=== PATIENT | male | born 1945 | race Caucasian/White ===

== ENCOUNTER 2016-03-30 07:32 | Inpatient (IN) ==
[2016-03-30] MEDS ORDERED: Levofloxacin 750 MG/150 ML 750 MG/150 ML BAG IVPB ONE (07:45)
[2016-03-30 07:52] LABS: Basophils % 0.1 %; Eosinophils % 0.1 %; Hematocrit 51.5 % (37.5-50.1); Hemoglobin 16.1 g/dL (12.9-16.9); Immature Granulocytes % 0.4 % (0-4); Mean Corpuscular HGB Conc 31.3 g/dL (31.6-35.5); Mean Corpuscular Volume 96.1 fL (83.0-100.0); Mean Platelet Volume 9.5 fL (9.4-12.4); Monocytes # 0.7 K/mcL (0.0-1.3); Monocytes % 4.9 %; Neutrophils # 12.8 K/mcL (1.6-8.9); Platelet Count 217 K/mcL (140-400); Red Blood Count 5.36 M/mcL (4.19-5.50); Segmented Neutrophils % 87.5 %
[2016-03-30 07:53] LABS: INR 0.9; Prothrombin Time 10.1 Seconds (9.4-12.1)
[2016-03-30 07:55] LABS: Activated Partial Thrombo Time 21.9 Seconds (26.0-36.0)
[2016-03-30 07:57] LABS: ABG Base Excess 9.8 mEq/L (-2.0 to 3.0); ABG HCO3 41.4 mEQ/L (21-27); ABG Oxygen Saturation 94 % (95-98); ABG PH 7.28 pH Units (7.32-7.45); ABG PO2 80 mmHg (85-104); ABG TCO2 44.1 mEq/L (20-26)
[2016-03-30 07:59] LABS: ABG PCO2 88 mmHg (35-45)
[2016-03-30 07:59] LABS: BUN/Creatinine Ratio 24 (6-26); Blood Urea Nitrogen 20 mg/dL (8-26); Calcium 9.5 mg/dL (8.6-10.8); Carbon Dioxide 36 mEq/L (19-29); Chloride 101 mEq/L (98-109); Glucose 177 mg/dL (70-99); Osmolality,Calculated 309 (280-300); Potassium 4.1 mEq/L (3.5-4.5); Sodium 146 mEq/L (136-145); eGFR For African Americans > 60 (> 60); eGFR For Non-African Americans > 60 (> 60)
[2016-03-30 08:00] LABS: Blood Gas FiO2 100 %
--- NOTE | 2016-03-30 08:08 | Emergency Department Note ---
Disposition Clinical Impression: Parkinsons Pneumonia Qualifiers: Pneumonia type: due to unspecified organism Laterality: right Lung location: unspecified part of lung Qualified Code(s): J18.9 - Pneumonia, unspecified organism Sepsis Qualifiers: Sepsis type: sepsis due to unspecified organism Qualified Code(s): A41.9 - Sepsis, unspecified organism Disposition: Admitted As Inpatient Condition: Fair Referrals: NO,PCP [Non-Partnered Physician] - Forms: ED Satisfaction Letter SOB HPI - General Chief Complaint: ED Shortness of Breath/Dyspnea Stated Complaint: Low O2 Saturation Time Seen by Provider: 03/30/16 07:45 Source: family, EMS Mode of arrival: EMS Limitations: no limitations Nursing Notes Reviewed: Yes Vital Signs Reviewed: Yes - History of Present Illness 71-year-old male history of Parkinson's presents for evaluation from a nursing facility for hypoxia. Patient was noted to have low oxygen saturation in the 40s reported by nursing staff and EMS. Patient was 91% on nonrebreather is alert and responsive. Patient was transitioned over to BiPAP upon arrival to the emergency department. contacted and is at bedside stating that the patient is DNR and would not want any intubations or chest compressions. states that he has been dealing with Parkinson's for several years and has difficulty swallowing. No notable cough or fever. No history of CHF or heart disease per the . Patient has been instructed to wear possibly 2 L oxygen at home but was not wearing any oxygen when he was found this morning. Nursing staff also note that patient is difficult to arouse. - Related Data Home Medications Medication Instructions Recorded Confirmed Acetaminophen [8 Hour] 650 mg PO Q6H PRN 07/08/15 03/30/16 Benztropine [Cogentin] 1 mg PO BID 07/08/15 03/30/16 Carbidopa/Levodopa 25/100 [Sinemet 1 each PO Q2H MDD 7 a.m. thru 9 07/08/1509/08 25/100] p.m. Cholecalciferol (Vitamin D3) 400 unit PO DAILY 07/08/15 03/30/16 [Vitamin D] Cyclosporine [Restasis] 1 each BOTH EYES BID 07/08/15 03/30/16 Doxycycline Hyclate [Vibramycin] 100 mg PO BID 07/08/15 03/30/16 Fluticasone Propionate Nasal 50 mcg NS DAILY 07/08/15 03/30/16 [Flonase] Gabapentin [Neurontin] 900 mg PO TID 07/08/15 03/30/16 Loperamide [Imodium] 2 mg PO Q8HR PRN 07/08/15 03/30/16 Losartan/HCTZ [Hyzaar 50-12.5 0.5 each PO DAILY 07/08/15 03/30/16 Tablet] Melatonin 10 mg PO HS PRN 07/08/15 03/30/16 Meloxicam [Mobic] 7.5 mg PO HS 07/08/15 03/30/16 Memantine [Namenda] 10 mg PO BID 07/08/15 03/30/16 Mirtazapine [Remeron] 15 mg PO HS 07/08/15 03/30/16 Multivitamin [Multivitamins] 1 cap PO DAILY 07/08/15 03/30/16 [place]-3/Dha/Epa/Fish Oil [Fish Oil 1 each PO BID 07/08/15 03/30/16 [place]-3 EC 1,200 mg] Oxycodone HCl/Acetaminophen 1 each PO Q4HR PRN 07/08/15 03/30/16 [Percocet 5-325 mg Tablet] Pantoprazole Sodium [Protonix] 40 mg PO BID 07/08/15 03/30/16 Simvastatin [Zocor] 20 mg PO HS 07/08/15 03/30/16 Acetaminophen [Tylenol Arthritis] 650 mg PO TID 03/30/16 03/30/16 Carbidopa/Levodopa 25/100 [Sinemet 1 each PO DAILY PRN MDD Between 03/30/1609/08 25/100] 1-2 a.m. only CloNIDine HCl 0.1 mg PO DAILY 03/30/16 03/30/16 Cyclobenzaprine HCl 5 mg PO HS 03/30/16 03/30/16 Donepezil HCl 23 mg PO DAILY 03/30/16 03/30/16 Guaifenesin [Mucinex] 1,200 mg PO BID PRN 03/30/16 03/30/16 Metoprolol XL (24 HR) Succ [Toprol 50 mg PO DAILY 03/30/16 03/30/16 XL] Ropinirole HCl [Requip] 3 mg PO TID 03/30/16 03/30/16 Allergies Allergy/AdvReac Type Severity Reaction Status Date / Time Penicillins Allergy See Verified 03/30/16 07:43 Comments Sulfa (Sulfonamide Allergy See Verified 03/30/16 07:43 Antibiotics) Comments Zolpidem [From Ambien] Allergy Unresponsiv Verified 03/30/16 07:43 e Limitations: ROS unobtainable due to patients medical condition Past Medical History - Past Medical History Medical history: Reports: dementia, GERD, hyperlipidemia, hypertension Surgical history: Reports: no surgical history Psychiatric history: Reports: anxiety, depression - Social History Smoking Status: Never smoker Smokeless Tobacco Status: No Alcohol use: Reports: none Drug use: Reports: none Physical Exam - General Limitations: other General appearance: alert, in distress - Head Head exam: normocephalic, normal inspection - Eye Eye exam: Present: normal appearance, EOMI - ENT ENT exam: normal exam, mucous membranes moist - Neck Neck exam: Present: normal inspection, trachea midline - Chest Chest inspection: Present: normal inspection, symmetric chest wall rise - Respiratory Respiratory exam: Present: respiratory distress, accessory muscle use, other ( Diffusely decreased breath sounds bilateral rhonchi) - Cardiovascular Cardiovascular exam: Present: normal rhythm, tachycardia - Abdominal Exam Abdominal exam: Present: soft, Non-Tender, distention. Absent: guarding, rebound - Extremities Exam Extremities exam: Present: normal inspection. Absent: pedal edema - Back Exam Back exam: Present: normal inspection - Neurological Exam Neurological exam: Present: alert - Skin Skin exam: Present: warm, dry, intact, mottled Course Course Narrative: Patient seen and examined. Patient's resting more comfortably on BiPAP. Patient is tachycardic and tachypneic. Signs for respiratory distress secondary to eye clinic infection possibly aspiration pneumonia. Patient did chest x-ray, labs, blood gas, antibiotics and fluids. Disposition likely admission. Reconfirmed at the bedside that the patient is DNR CC. - Reevaluation(s) Reevaluation #1: Patient seen and examined. at bedside. Patient appears to have continuous tachycardia and tachypnea. Patient would benefit from intubation this is again confirmed by the stating that he does not want intubation. Time: 08:53 Vital Signs Temperature 98.0 F 03/30/16 07:34 Pulse Rate 117 03/30/16 07:34 Respiratory Rate 42 03/30/16 07:34 Blood Pressure 181/83 03/30/16 07:34 O2 Sat by Pulse Oximetry 92 L 03/30/16 07:34 Temperature 98.0 F 03/30/16 07:34 Pulse Rate 140 03/30/16 08:20 Respiratory Rate 51 03/30/16 08:20 Blood Pressure 153/92 03/30/16 08:20 O2 Sat by Pulse Oximetry 93 L 03/30/16 08:20 Oxygen Delivery Oxygen Delivery Bipap Shortness of Breath/Dyspnea - MDM Narrative Medical decision making narrative: 71-year-old male history of Parkinson's presents for hypoxemic respiratory failure. Likely related to aspiration pneumonia. Patient blood gas shows acidosis with retaining CO2. Patient does qualify for surgery care resource of infection along. Patient's getting IV fluid hydration with gradual titrated boluses due to unknown cardiac history. presumes that the patient has does not have CHF. Patient would likely benefit from intubation however the states the patient does not want to be intubated. Patient's blood cultures were obtained. Patient wanted antibiotics. Hospitalist recommended duo nebs as well as Solu-Medrol. is updated on patient's plan of care and agrees. - Lab Data Lab results reviewed: Yes I reviewed the patient's lab results. Result diagrams: 03/30/16 07:40 03/30/16 07:40 Lab Results 03/30/16 03/30/16 03/30/16 Range/Units 07:40 07:40 07:40 WBC 14.7 H (4.3-11.1) K/mcL RBC 5.36 (4.19-5.50) M/mcL Hgb 16.1 (12.9-16.9) g/dL Hct 51.5 H (37.5-50.1) % MCV 96.1 (83.0-100.0) fL MCH 30.0 (28.0-33.3) pg MCHC 31.3 L (31.6-35.5) g/dL RDW 13.0 (11.5-14.5) % Plt Count 217 (140-400) K/mcL MPV 9.5 (9.4-12.4) fL Immature Gran % 0.4 (0-4) % Seg Neutrophils % 87.5 % Lymphocytes % 7.0 % Monocytes % 4.9 % Eosinophils % 0.1 % Basophils % 0.1 % Neutrophils # 12.8 H (1.6-8.9) K/mcL Lymphocytes # 1.0 (0.6-4.6) K/mcL Monocytes # 0.7 (0.0-1.3) K/mcL Eosinophils # 0.0 (0.0-0.6) K/mcL Basophils # 0.0 (0.0-0.2) K/mcL PT 10.1 (9.4-12.1) Seconds INR 0.9 APTT 21.9 L (26.0-36.0) Seconds ABG pH (7.32-7.45) pH Units ABG pCO2 (35-45) mmHg ABG pO2 (85-104) mmHg ABG HCO3 (21-27) mEQ/L ABG Total CO2 (20-26) mEq/L ABG O2 Saturation (95-98) % ABG Base Excess (-2.0 to 3.0) mEq/L Blood Gas Modality Inspired O2 % Sodium 146 H (136-145) mEq/L Potassium 4.1 (3.5-4.5) mEq/L Chloride 101 (98-109) mEq/L Carbon Dioxide 36 H (19-29) mEq/L BUN 20 (8-26) mg/dL Creatinine 0.84 (0.72-1.25) mg/dL Est GFR ( Amer) > 60 (> 60) Est GFR (Non-Af Amer) > 60 (> 60) BUN/Creatinine Ratio 24 (6-26) Glucose 177 H (70-99) mg/dL Calculated Osmolality 309 H (280-300) Lactic Acid (0.5-2.2) mmol/L Calcium 9.5 (8.6-10.8) mg/dL Troponin I (0-0.03) ng/mL B-Natriuretic Peptide (0-100) pg/mL 03/30/16 03/30/16 03/30/16 Range/Units 07:40 07:40 07:50 WBC (4.3-11.1) K/mcL RBC (4.19-5.50) M/mcL Hgb (12.9-16.9) g/dL Hct (37.5-50.1) % MCV (83.0-100.0) fL MCH (28.0-33.3) pg MCHC (31.6-35.5) g/dL RDW (11.5-14.5) % Plt Count (140-400) K/mcL MPV (9.4-12.4) fL Immature Gran % (0-4) % Seg Neutrophils % % Lymphocytes % % Monocytes % % Eosinophils % % Basophils % % Neutrophils # (1.6-8.9) K/mcL Lymphocytes # (0.6-4.6) K/mcL Monocytes # (0.0-1.3) K/mcL Eosinophils # (0.0-0.6) K/mcL Basophils # (0.0-0.2) K/mcL PT (9.4-12.1) Seconds INR APTT (26.0-36.0) Seconds ABG pH 7.28 L (7.32-7.45) pH Units ABG pCO2 88 H* (35-45) mmHg ABG pO2 80 L (85-104) mmHg ABG HCO3 41.4 H (21-27) mEQ/L ABG Total CO2 44.1 H (20-26) mEq/L ABG O2 Saturation 94 L (95-98) % ABG Base Excess 9.8 H (-2.0 to 3.0) mEq/L Blood Gas Modality BIPAP Inspired O2 100 % Sodium (136-145) mEq/L Potassium (3.5-4.5) mEq/L Chloride (98-109) mEq/L Carbon Dioxide (19-29) mEq/L BUN (8-26) mg/dL Creatinine (0.72-1.25) mg/dL Est GFR ( Amer) (> 60) Est GFR (Non-Af Amer) (> 60) BUN/Creatinine Ratio (6-26) Glucose (70-99) mg/dL Calculated Osmolality (280-300) Lactic Acid (0.5-2.2) mmol/L Calcium (8.6-10.8) mg/dL Troponin I 0.01 (0-0.03) ng/mL B-Natriuretic Peptide 27 (0-100) pg/mL 03/30/16 Range/Units 08:02 WBC (4.3-11.1) K/mcL RBC (4.19-5.50) M/mcL Hgb (12.9-16.9) g/dL Hct (37.5-50.1) % MCV (83.0-100.0) fL MCH (28.0-33.3) pg MCHC (31.6-35.5) g/dL RDW (11.5-14.5) % Plt Count (140-400) K/mcL MPV (9.4-12.4) fL Immature Gran % (0-4) % Seg Neutrophils % % Lymphocytes % % Monocytes % % Eosinophils % % Basophils % % Neutrophils # (1.6-8.9) K/mcL Lymphocytes # (0.6-4.6) K/mcL Monocytes # (0.0-1.3) K/mcL Eosinophils # (0.0-0.6) K/mcL Basophils # (0.0-0.2) K/mcL PT (9.4-12.1) Seconds INR APTT (26.0-36.0) Seconds ABG pH (7.32-7.45) pH Units ABG pCO2 (35-45) mmHg ABG pO2 (85-104) mmHg ABG HCO3 (21-27) mEQ/L ABG Total CO2 (20-26) mEq/L ABG O2 Saturation (95-98) % ABG Base Excess (-2.0 to 3.0) mEq/L Blood Gas Modality Inspired O2 % Sodium (136-145) mEq/L Potassium (3.5-4.5) mEq/L Chloride (98-109) mEq/L Carbon Dioxide (19-29) mEq/L BUN (8-26) mg/dL Creatinine (0.72-1.25) mg/dL Est GFR ( Amer) (> 60) Est GFR (Non-Af Amer) (> 60) BUN/Creatinine Ratio (6-26) Glucose (70-99) mg/dL Calculated Osmolality (280-300) Lactic Acid 3.3 H (0.5-2.2) mmol/L Calcium (8.6-10.8) mg/dL Troponin I (0-0.03) ng/mL B-Natriuretic Peptide (0-100) pg/mL - Radiology Data Radiology results reviewed: Yes I reviewed the patient's radiology results. Chest X-Ray 03/30/16 07:45 IMPRESSION: Right perihilar opacity suspicious for pneumonia in the foot clinical setting. Short-term follow-up is recommended to ensure resolution. D/ / Alayna Batres MD / Alayna Batres MD Interpreting Provider: Alayna Batres MD - EKG Data EKG shows normal: Reports: sinus rhythm Rate: Reports: tachycardia Rhythm: Reports: NSR [place]/QRS: Reports: normal When compared to previous EKG there are: changes noted Interpretation: Reports: nonspecific ST-T wave changes S.B.Dian - [email or web address].Julieth Situation: Demographics Background: Presenting Complaint Assessment: Vital Signs, Course and respsone to treatment, Exam Concerns, Patient/Family Expectation, Pertinant Lab Results Recommendation: Barrier(s) to disposition, Recommendation based on pending studies, treatments, or consults S.B.AJulian Report Given to: Dr. Lemuel Velasquez Repor Time: 08:56
[2016-03-30] MEDS ORDERED: 0.9 % Sodium Chloride 1,000 ML IVC ONE ×2 (08:09→08:51)
--- NOTE | 2016-03-30 08:12 | Emergency Department Note ---
Disposition Clinical Impression: Pneumonia, Parkinsons, Sepsis Disposition: Admitted As Inpatient Condition: Fair Referrals: NO,PCP [Non-Partnered Physician] - Forms: ED Satisfaction Letter General Adult HPI - General Chief complaint: ED Shortness of Breath/Dyspnea Stated complaint: Low O2 Saturation Time Seen by Provider: 03/30/16 07:45 Source: family, EMS Mode of arrival: EMS Limitations: other Nursing Notes Reviewed: Yes Vital Signs Reviewed: Yes - History of Present Illness Pain Scale: 0 - Related Data Home Medications Medication Instructions Recorded Confirmed Acetaminophen [8 Hour] 650 mg PO Q6H PRN 07/08/15 03/30/16 Benztropine [Cogentin] 1 mg PO BID 07/08/15 03/30/16 Carbidopa/Levodopa 25/100 [Sinemet 1 each PO Q2H MDD 7 a.m. thru 9 07/08/1509/08 25/100] p.m. Cholecalciferol (Vitamin D3) 400 unit PO DAILY 07/08/15 03/30/16 [Vitamin D] Cyclosporine [Restasis] 1 each BOTH EYES BID 07/08/15 03/30/16 Doxycycline Hyclate [Vibramycin] 100 mg PO BID 07/08/15 03/30/16 Fluticasone Propionate Nasal 50 mcg NS DAILY 07/08/15 03/30/16 [Flonase] Gabapentin [Neurontin] 900 mg PO TID 07/08/15 03/30/16 Loperamide [Imodium] 2 mg PO Q8HR PRN 07/08/15 03/30/16 Losartan/HCTZ [Hyzaar 50-12.5 0.5 each PO DAILY 07/08/15 03/30/16 Tablet] Melatonin 10 mg PO HS PRN 07/08/15 03/30/16 Meloxicam [Mobic] 7.5 mg PO HS 07/08/15 03/30/16 Memantine [Namenda] 10 mg PO BID 07/08/15 03/30/16 Mirtazapine [Remeron] 15 mg PO HS 07/08/15 03/30/16 Multivitamin [Multivitamins] 1 cap PO DAILY 07/08/15 03/30/16 [place]-3/Dha/Epa/Fish Oil [Fish Oil 1 each PO BID 07/08/15 03/30/16 [place]-3 EC 1,200 mg] Oxycodone HCl/Acetaminophen 1 each PO Q4HR PRN 07/08/15 03/30/16 [Percocet 5-325 mg Tablet] Pantoprazole Sodium [Protonix] 40 mg PO BID 07/08/15 03/30/16 Simvastatin [Zocor] 20 mg PO HS 07/08/15 03/30/16 Acetaminophen [Tylenol Arthritis] 650 mg PO TID 03/30/16 03/30/16 Carbidopa/Levodopa 25/100 [Sinemet 1 each PO DAILY PRN MDD Between 03/30/1609/08 25/100] 1-2 a.m. only CloNIDine HCl 0.1 mg PO DAILY 03/30/16 03/30/16 Cyclobenzaprine HCl 5 mg PO HS 03/30/16 03/30/16 Donepezil HCl 23 mg PO DAILY 03/30/16 03/30/16 Guaifenesin [Mucinex] 1,200 mg PO BID PRN 03/30/16 03/30/16 Metoprolol XL (24 HR) Succ [Toprol 50 mg PO DAILY 03/30/16 03/30/16 XL] Ropinirole HCl [Requip] 3 mg PO TID 03/30/16 03/30/16 Allergies Allergy/AdvReac Type Severity Reaction Status Date / Time Penicillins Allergy See Verified 03/30/16 07:43 Comments Sulfa (Sulfonamide Allergy See Verified 03/30/16 07:43 Antibiotics) Comments Zolpidem [From Ambien] Allergy Unresponsiv Verified 03/30/16 07:43 e Past Medical History - Past Medical History Medical history: Reports: dementia, GERD, hyperlipidemia, hypertension Surgical history: Reports: no surgical history Psychiatric history: Reports: anxiety, depression - Social History Smoking Status: Never smoker Smokeless Tobacco Status: No Alcohol use: Reports: none Drug use: Reports: none Physical Exam - General Limitations: other General appearance: alert, in distress Course Vital Signs Temperature 98.0 F 03/30/16 07:34 Pulse Rate 117 03/30/16 07:34 Respiratory Rate 42 03/30/16 07:34 Blood Pressure 181/83 03/30/16 07:34 O2 Sat by Pulse Oximetry 92 L 03/30/16 07:34 Temperature 98.0 F 03/30/16 07:34 Pulse Rate 133 03/30/16 09:16 Respiratory Rate 40 03/30/16 09:16 Blood Pressure 152/83 03/30/16 09:16 O2 Sat by Pulse Oximetry 99 03/30/16 09:16 Oxygen Delivery Oxygen Delivery Bipap Medical Decision Making - MDM Narrative Medical decision making narrative: I examined this patient and my medical decision-making was reviewed with the [employer]/PA/Advanced Practice Nurse/Resident Physician. I agree with the documented findings, disposition and treatment plan as described except to the extent set forth below. Evaluated this patient with Dr. Boswell, I agree with his evaluation management plan, supervise care the patient's stay. Patient came in from nursing facility by EMS. Has a history of Parkinson's disease. End stage lung disease. Requiring oxygen. He was found smiling without his oxygen on. They placed him on the oxygen saturations went back up in the 90s. He is awake. His came and he is listed as a DNR CC arrest. She says no intubation we change that over. No code sheet on chart that he is a DNR [facility] only. She is agreement the BiPAP laboratory work x-rays but no heroic measures no CPR no intubation. Patient's in agreement with this also. Getting a blood gas on him checking his labs chest x-ray nebulized treatments and reassess. He will need admission. - Lab Data Result diagrams: 03/30/16 07:40 03/30/16 07:40 Lab Results 03/30/16 03/30/16 03/30/16 Range/Units 07:40 07:40 07:40 WBC 14.7 H (4.3-11.1) K/mcL RBC 5.36 (4.19-5.50) M/mcL Hgb 16.1 (12.9-16.9) g/dL Hct 51.5 H (37.5-50.1) % MCV 96.1 (83.0-100.0) fL MCH 30.0 (28.0-33.3) pg MCHC 31.3 L (31.6-35.5) g/dL RDW 13.0 (11.5-14.5) % Plt Count 217 (140-400) K/mcL MPV 9.5 (9.4-12.4) fL Immature Gran % 0.4 (0-4) % Seg Neutrophils % 87.5 % Lymphocytes % 7.0 % Monocytes % 4.9 % Eosinophils % 0.1 % Basophils % 0.1 % Neutrophils # 12.8 H (1.6-8.9) K/mcL Lymphocytes # 1.0 (0.6-4.6) K/mcL Monocytes # 0.7 (0.0-1.3) K/mcL Eosinophils # 0.0 (0.0-0.6) K/mcL Basophils # 0.0 (0.0-0.2) K/mcL PT 10.1 (9.4-12.1) Seconds INR 0.9 APTT 21.9 L (26.0-36.0) Seconds ABG pH (7.32-7.45) pH Units ABG pCO2 (35-45) mmHg ABG pO2 (85-104) mmHg ABG HCO3 (21-27) mEQ/L ABG Total CO2 (20-26) mEq/L ABG O2 Saturation (95-98) % ABG Base Excess (-2.0 to 3.0) mEq/L Blood Gas Modality Inspired O2 % Sodium 146 H (136-145) mEq/L Potassium 4.1 (3.5-4.5) mEq/L Chloride 101 (98-109) mEq/L Carbon Dioxide 36 H (19-29) mEq/L BUN 20 (8-26) mg/dL Creatinine 0.84 (0.72-1.25) mg/dL Est GFR ( Amer) > 60 (> 60) Est GFR (Non-Af Amer) > 60 (> 60) BUN/Creatinine Ratio 24 (6-26) Glucose 177 H (70-99) mg/dL Calculated Osmolality 309 H (280-300) Lactic Acid (0.5-2.2) mmol/L Calcium 9.5 (8.6-10.8) mg/dL Troponin I (0-0.03) ng/mL B-Natriuretic Peptide (0-100) pg/mL 03/30/16 03/30/16 03/30/16 Range/Units 07:40 07:40 07:50 WBC (4.3-11.1) K/mcL RBC (4.19-5.50) M/mcL Hgb (12.9-16.9) g/dL Hct (37.5-50.1) % MCV (83.0-100.0) fL MCH (28.0-33.3) pg MCHC (31.6-35.5) g/dL RDW (11.5-14.5) % Plt Count (140-400) K/mcL MPV (9.4-12.4) fL Immature Gran % (0-4) % Seg Neutrophils % % Lymphocytes % % Monocytes % % Eosinophils % % Basophils % % Neutrophils # (1.6-8.9) K/mcL Lymphocytes # (0.6-4.6) K/mcL Monocytes # (0.0-1.3) K/mcL Eosinophils # (0.0-0.6) K/mcL Basophils # (0.0-0.2) K/mcL PT (9.4-12.1) Seconds INR APTT (26.0-36.0) Seconds ABG pH 7.28 L (7.32-7.45) pH Units ABG pCO2 88 H* (35-45) mmHg ABG pO2 80 L (85-104) mmHg ABG HCO3 41.4 H (21-27) mEQ/L ABG Total CO2 44.1 H (20-26) mEq/L ABG O2 Saturation 94 L (95-98) % ABG Base Excess 9.8 H (-2.0 to 3.0) mEq/L Blood Gas Modality BIPAP Inspired O2 100 % Sodium (136-145) mEq/L Potassium (3.5-4.5) mEq/L Chloride (98-109) mEq/L Carbon Dioxide (19-29) mEq/L BUN (8-26) mg/dL Creatinine (0.72-1.25) mg/dL Est GFR ( Amer) (> 60) Est GFR (Non-Af Amer) (> 60) BUN/Creatinine Ratio (6-26) Glucose (70-99) mg/dL Calculated Osmolality (280-300) Lactic Acid (0.5-2.2) mmol/L Calcium (8.6-10.8) mg/dL Troponin I 0.01 (0-0.03) ng/mL B-Natriuretic Peptide 27 (0-100) pg/mL 03/30/16 Range/Units 08:02 WBC (4.3-11.1) K/mcL RBC (4.19-5.50) M/mcL Hgb (12.9-16.9) g/dL Hct (37.5-50.1) % MCV (83.0-100.0) fL MCH (28.0-33.3) pg MCHC (31.6-35.5) g/dL RDW (11.5-14.5) % Plt Count (140-400) K/mcL MPV (9.4-12.4) fL Immature Gran % (0-4) % Seg Neutrophils % % Lymphocytes % % Monocytes % % Eosinophils % % Basophils % % Neutrophils # (1.6-8.9) K/mcL Lymphocytes # (0.6-4.6) K/mcL Monocytes # (0.0-1.3) K/mcL Eosinophils # (0.0-0.6) K/mcL Basophils # (0.0-0.2) K/mcL PT (9.4-12.1) Seconds INR APTT (26.0-36.0) Seconds ABG pH (7.32-7.45) pH Units ABG pCO2 (35-45) mmHg ABG pO2 (85-104) mmHg ABG HCO3 (21-27) mEQ/L ABG Total CO2 (20-26) mEq/L ABG O2 Saturation (95-98) % ABG Base Excess (-2.0 to 3.0) mEq/L Blood Gas Modality Inspired O2 % Sodium (136-145) mEq/L Potassium (3.5-4.5) mEq/L Chloride (98-109) mEq/L Carbon Dioxide (19-29) mEq/L BUN (8-26) mg/dL Creatinine (0.72-1.25) mg/dL Est GFR ( Amer) (> 60) Est GFR (Non-Af Amer) (> 60) BUN/Creatinine Ratio (6-26) Glucose (70-99) mg/dL Calculated Osmolality (280-300) Lactic Acid 3.3 H (0.5-2.2) mmol/L Calcium (8.6-10.8) mg/dL Troponin I (0-0.03) ng/mL B-Natriuretic Peptide (0-100) pg/mL
[2016-03-30] MEDS ORDERED: Cefepime HCl 1,000 MG in D5% in Water (Mini-Bag+) 100 ML IVPB ONE (08:27)
[2016-03-30] MEDS ORDERED: Vancomycin 1,000 MG in D5% in Water 250 ML IVPB ONE (08:27)
[2016-03-30] MEDS ORDERED: methylPREDNISolone 125 MG/2 ML VIAL IVP ONE (08:51)
[2016-03-30] MEDS ORDERED: Ipratropium/Albuterol Neb 3 ML IH ONE (08:51)
[2016-03-30] MEDS ORDERED: Acetaminophen 325 MG TABLET PO PRN (09:42)
[2016-03-30] MEDS ORDERED: *HR* Metoprolol 5 MG/5 ML VIAL IVP PRN (09:42)
[2016-03-30] MEDS ORDERED: Ondansetron 4 MG/2 ML VIAL IVP PRN (09:42)
[2016-03-30] MEDS ORDERED: Naloxone 0.4 MG/ML INJ IVP PRN (09:42)
[2016-03-30] MEDS ORDERED: MethylPREDNISolone 40 MG/ML VIAL IVP ONE (09:50)
[2016-03-30] MEDS ORDERED: Carbidopa/Levodopa 25/100 TABLET GTUBE PRN (09:51)
[2016-03-30] MEDS ORDERED: Vancomycin 1,250 MG in D5% in Water 250 ML IVPB SCH (10:00)
--- NOTE | 2016-03-30 10:03 | Internal Med History&Physical ---
<Joseph Mcgee - Last Filed: 03/30/16 10:27> Date of Encounter: 03/30/16 Time of Encounter: 09:58 Assessment and Plan (1) Sepsis Current visit: Yes Status: Acute Patient presents with leukocytosis, tachycardia and tachypnea; likely source from HCAP as seen on CXR Will continue patient on broad spectrum IV antibiotics with Vancomycin, Levaquin , and Cefepime Blood cultures and urinary antigens collected, await results prior to de- escalation Support with IVF hydration D5W in 1/2 NS at 75 ml/hr Initial lactic acid of 3.3, will repeat in 6 hours as he has received fluids while in ED Qualifiers: Sepsis type: sepsis due to unspecified organism Qualified Code(s): A41.9 - Sepsis, unspecified organism (2) Acute on chronic respiratory failure with hypoxemia Current visit: Yes Status: Acute Secondary to HCAP and possible aspiration pneumonia while at custodial Will support with BiPAP, supplemental oxygen, steroids, and scheduled breathing treatments Patient would certainly benefit from intubation but confirmed DNR-CCA/DNI status (3) HCAP (healthcare-associated pneumonia) Current visit: Yes Status: Acute Patient resides in custodial and may have possibly aspirated Will continue with Vancomycin, Levaquin, and Cefepime as above until blood cultures results Urine Legionella/Strep antigens pending (4) Hypertension Current visit: Yes Status: Chronic Blood pressure at admission slightly elevated Will administer IV Lopressor in place of PO Toprol as he is NPO for now Once NGT is placed, will continue home Clonidine and Toprol Qualifiers: Qualified Code(s): I10 - Essential (primary) hypertension (5) COPD (chronic obstructive pulmonary disease) Current visit: Yes Status: Suspected This is suspected, as states he has never been formally diagnosed Continue with supportive treatments as above Would likely benefit from PFTs as outpatient and use of breathing treatments upon discharge Qualifiers: Qualified Code(s): J44.9 - Chronic obstructive pulmonary disease, unspecified (6) Dysphagia Current visit: Yes Status: Chronic Secondary to Parkinsons Will place NGT for administration of his home PO medications Consult speech therapy for formal swallow evaluation, appreciate recommendations Qualifiers: Qualified Code(s): R13.10 - Dysphagia, unspecified (7) Parkinsons Current visit: Yes Status: Chronic Will resume home medications through [facility] Consult PT/OT/SS as he resides in custodial (8) DVT prophylaxis Current visit: Yes Status: Acute Heparin 5000 units BID Internal Medicine - H&P: HPI Chief complaint: respiratory failure Admitted From: Long-term Nursing Facility Plans for Post Hospital Care: [facility] History of present illness: Mr. Philip is a 71 year old male who presents from custodial with acute respiratory failure as the nursing staff found him to have oxygen saturations in the 40's this morning. is at bedside and is able to assist with history. Patient is currently on BiPAP but only uses 2 L of oxygen at the custodial. She also states the patient is bedridden and has Parkinsons, and normally has secretions and difficulty swallowing food over the past year. However, she claims the patient eats regular food and takes his medications by mouth. At baseline, he is altered but does respond to commands and able to converse in short sentences. However, this morning he is minimally responsive and can only mumble when asked questions. Patient does not appear to be in any pain and mumbles no when asked if he is hurting anywhere. states he hasn't been coughing as of late and does not have history of pneumonia or recent hospitalizations. Past Med Surg Social Fam HX - Past Medical History Medical history: dementia, GERD, hyperlipidemia, hypertension Psychiatric history: anxiety, depression - Past Surgical History Surgical History: no surgical history - Social History Smoking Status: Never smoker Smokeless Tobacco Status: No Alcohol use: none Drug use: none - Family History Mother Living Status: Hx Family Neurologic Disorders: Yes (Parkinsons) Father Living Status: Still Living Hx Family Cardiac Disorders: Yes (Mi,Stroke) Hx Family Neurologic Disorders: Yes (Dementia) Hx Family Autoimmune Disorders: Yes Internal Medicine - H&P: Meds Acetaminophen [8 Hour] 650 mg PO Q6H PRN 07/08/15 [History] Benztropine [Cogentin] 1 mg PO BID 07/08/15 [History] Carbidopa/Levodopa 25/100 [Sinemet 25/100] 1 each PO Q2H MDD 7 a.m. thru 9 p.m. 07/08/15 [History] Cholecalciferol (Vitamin D3) [Vitamin D] 400 unit PO DAILY 07/08/15 [History] Cyclosporine [Restasis] 1 each BOTH EYES BID 07/08/15 [History] Doxycycline Hyclate [Vibramycin] 100 mg PO BID 07/08/15 [History] Fluticasone Propionate Nasal [Flonase] 50 mcg NS DAILY 07/08/15 [History] Gabapentin [Neurontin] 900 mg PO TID 07/08/15 [History] Loperamide [Imodium] 2 mg PO Q8HR PRN 07/08/15 [History] Losartan/HCTZ [Hyzaar 50-12.5 Tablet] 0.5 each PO DAILY 07/08/15 [History] Melatonin 10 mg PO HS PRN 07/08/15 [History] Meloxicam [Mobic] 7.5 mg PO HS 07/08/15 [History] Memantine [Namenda] 10 mg PO BID 07/08/15 [History] Mirtazapine [Remeron] 15 mg PO HS 07/08/15 [History] Multivitamin [Multivitamins] 1 cap PO DAILY 07/08/15 [History] [place]-3/Dha/Epa/Fish Oil [Fish Oil [place]-3 EC 1,200 mg] 1 each PO BID 07/08/15 [ History] Oxycodone HCl/Acetaminophen [Percocet 5-325 mg Tablet] 1 each PO Q4HR PRN [History] Pantoprazole Sodium [Protonix] 40 mg PO BID 07/08/15 [History] Simvastatin [Zocor] 20 mg PO HS 07/08/15 [History] Acetaminophen [Tylenol Arthritis] 650 mg PO TID 03/30/16 [History] Carbidopa/Levodopa 25/100 [Sinemet 25/100] 1 each PO DAILY PRN MDD Between 1-2 a.m. only 03/30/16 [History] CloNIDine HCl 0.1 mg PO DAILY 03/30/16 [History] Cyclobenzaprine HCl 5 mg PO HS 03/30/16 [History] Donepezil HCl 23 mg PO DAILY 03/30/16 [History] Guaifenesin [Mucinex] 1,200 mg PO BID PRN 03/30/16 [History] Metoprolol XL (24 HR) Succ [Toprol XL] 50 mg PO DAILY 03/30/16 [History] Ropinirole HCl [Requip] 3 mg PO TID 03/30/16 [History] Allergies Penicillins Allergy (Verified 03/30/16 07:43) See Comments Unknown Sulfa (Sulfonamide Antibiotics) Allergy (Verified 03/30/16 07:43) See Comments unknown Zolpidem [From Ambien] Allergy (Verified 03/30/16 07:43) Unresponsive ROS unobtainable: due to mental status All Systems PM: A 10-system review of systems was performed and is negative for pertinent findings except as documented above in the HPI. - Constitutional Vitals: Temp Pulse Resp BP Pulse Ox 98.0 F 133 40 152/83 99 03/30/16 07:34 03/30/16 09:16 03/30/16 09:16 03/30/16 09:16 03/30/16 09:16 General appearance: Present: A&O X 0, disheveled, mild distress. Absent: answers questions appropriately Exam: minimally responsive even to sternal rub, does open eye momentarily; only mumbles to answers and does not follow commands - Head Head exam: Present: atraumatic, normocephalic - Neck Neck exam general surgery: Present: supple, trachea midline. Absent: lymphadenopathy - Respiratory Respiratory exam: Present: rhonchi. Absent: accessory muscle use, rales, wheezes - Cardiovascular Cardiovascular exam: Present: +S1, +S2, tachycardia. Absent: diastolic murmur, gallop, rubs, systolic murmur - GI/Abdominal GI/Abdominal exam: Present: normal bowel sounds, soft, no peritoneal signs. Absent: distended, guarding, rigid (f), tenderness - Extremities Exam Extremities exam: Present: warm, radial pulses palpable and symetrical. Absent : calf tenderness, cyanotic, pedal edema - Neurological Exam Neurological exam: Present: altered, speech deficit. Absent: oriented X3 - Skin Skin exam: Present: dry, intact Internal Med - H&P Results - Labs CBC & Chem 7: 03/30/16 07:40 03/30/16 07:40 Labs: Short CBC 03/30/16 Range/Units 07:40 WBC 14.7 H (4.3-11.1) K/mcL Hgb 16.1 (12.9-16.9) g/dL Hct 51.5 H (37.5-50.1) % Plt Count 217 (140-400) K/mcL Neutrophils # 12.8 H (1.6-8.9) K/mcL BMP 03/30/16 07:40 Sodium 146 H Potassium 4.1 Chloride 101 Carbon Dioxide 36 H BUN 20 Creatinine 0.84 Glucose 177 H Calcium 9.5 Cardiac Enzymes 03/30/16 Range/Units 07:40 Troponin I 0.01 (0-0.03) ng/mL - ABG Interpretation ABG results: 03/30/16 07:50 ABG pH 7.28 L ABG pCO2 88 H* ABG pO2 80 L ABG HCO3 41.4 H ABG Total CO2 44.1 H ABG O2 Saturation 94 L ABG Base Excess 9.8 H - Impressions ITS Impressions Chest X-Ray 03/30/16 07:45 IMPRESSION: Right perihilar opacity suspicious for pneumonia in the foot clinical setting. Short-term follow-up is recommended to ensure resolution. D/ / Alayna Batres MD / Alayna Batres MD Interpreting Provider: Alayna Batres MD <Chantel Hdez - Last Filed: 03/30/16 10:32> Date of Encounter: 03/30/16 Internal Medicine - H&P: HPI History of present illness: Mr. Philip is a 71 year old male All Systems PM: A 10-system review of systems was performed and is negative for pertinent findings except as documented above in the HPI. - Constitutional Vitals: Temp Pulse Resp BP Pulse Ox 98.0 F 130 49 119/76 95 03/30/16 07:34 03/30/16 10:27 03/30/16 10:27 03/30/16 10:27 03/30/16 10:27 Internal Med - H&P Results - Labs CBC & Chem 7: 03/30/16 07:40 03/30/16 07:40 Labs: Short CBC 03/30/16 Range/Units 07:40 WBC 14.7 H (4.3-11.1) K/mcL Hgb 16.1 (12.9-16.9) g/dL Hct 51.5 H (37.5-50.1) % Plt Count 217 (140-400) K/mcL Neutrophils # 12.8 H (1.6-8.9) K/mcL BMP 03/30/16 07:40 Sodium 146 H Potassium 4.1 Chloride 101 Carbon Dioxide 36 H BUN 20 Creatinine 0.84 Glucose 177 H Calcium 9.5 Cardiac Enzymes 03/30/16 Range/Units 07:40 Troponin I 0.01 (0-0.03) ng/mL - ABG Interpretation ABG results: 03/30/16 07:50 ABG pH 7.28 L ABG pCO2 88 H* ABG pO2 80 L ABG HCO3 41.4 H ABG Total CO2 44.1 H ABG O2 Saturation 94 L ABG Base Excess 9.8 H - Impressions ITS Impressions Chest X-Ray 03/30/16 07:45
[2016-03-30] MEDS ORDERED: Acetaminophen 325 MG RECTAL SUPP RC PRN (10:31)
[2016-03-30] MEDS ORDERED: CloNIDine Patch 0.1 MG PATCH (WEEKLY) TD SCH (10:45)
--- NOTE | 2016-03-30 10:57 | Emergency Department Note ---
Disposition Clinical Impression: Parkinsons Pneumonia Qualifiers: Pneumonia type: due to unspecified organism Laterality: right Lung location: unspecified part of lung Qualified Code(s): J18.9 - Pneumonia, unspecified organism Sepsis Qualifiers: Sepsis type: sepsis due to unspecified organism Qualified Code(s): A41.9 - Sepsis, unspecified organism Disposition: Admitted As Inpatient Condition: Fair Referrals: NO,PCP [Non-Partnered Physician] - Forms: ED Satisfaction Letter General Adult HPI - General Chief complaint: ED Shortness of Breath/Dyspnea Stated complaint: Low O2 Saturation Time Seen by Provider: 03/30/16 07:45 Source: family, EMS Mode of arrival: EMS Limitations: other Nursing Notes Reviewed: Yes Vital Signs Reviewed: Yes - History of Present Illness Pain Scale: 0 - Related Data Home Medications Medication Instructions Recorded Confirmed Acetaminophen [8 Hour] 650 mg PO Q6H PRN 07/08/15 03/30/16 Benztropine [Cogentin] 1 mg PO BID 07/08/15 03/30/16 Carbidopa/Levodopa 25/100 [Sinemet 1 each PO Q2H MDD 7 a.m. thru 9 07/08/1509/08 25/100] p.m. Cholecalciferol (Vitamin D3) 400 unit PO DAILY 07/08/15 03/30/16 [Vitamin D] Cyclosporine [Restasis] 1 each BOTH EYES BID 07/08/15 03/30/16 Doxycycline Hyclate [Vibramycin] 100 mg PO BID 07/08/15 03/30/16 Fluticasone Propionate Nasal 50 mcg NS DAILY 07/08/15 03/30/16 [Flonase] Gabapentin [Neurontin] 900 mg PO TID 07/08/15 03/30/16 Loperamide [Imodium] 2 mg PO Q8HR PRN 07/08/15 03/30/16 Losartan/HCTZ [Hyzaar 50-12.5 0.5 each PO DAILY 07/08/15 03/30/16 Tablet] Melatonin 10 mg PO HS PRN 07/08/15 03/30/16 Meloxicam [Mobic] 7.5 mg PO HS 07/08/15 03/30/16 Memantine [Namenda] 10 mg PO BID 07/08/15 03/30/16 Mirtazapine [Remeron] 15 mg PO HS 07/08/15 03/30/16 Multivitamin [Multivitamins] 1 cap PO DAILY 07/08/15 03/30/16 [place]-3/Dha/Epa/Fish Oil [Fish Oil 1 each PO BID 07/08/15 03/30/16 [place]-3 EC 1,200 mg] Oxycodone HCl/Acetaminophen 1 each PO Q4HR PRN 07/08/15 03/30/16 [Percocet 5-325 mg Tablet] Pantoprazole Sodium [Protonix] 40 mg PO BID 07/08/15 03/30/16 Simvastatin [Zocor] 20 mg PO HS 07/08/15 03/30/16 Acetaminophen [Tylenol Arthritis] 650 mg PO TID 03/30/16 03/30/16 Carbidopa/Levodopa 25/100 [Sinemet 1 each PO DAILY PRN MDD Between 03/30/1609/08 25/100] 1-2 a.m. only CloNIDine HCl 0.1 mg PO DAILY 03/30/16 03/30/16 Cyclobenzaprine HCl 5 mg PO HS 03/30/16 03/30/16 Donepezil HCl 23 mg PO DAILY 03/30/16 03/30/16 Guaifenesin [Mucinex] 1,200 mg PO BID PRN 03/30/16 03/30/16 Metoprolol XL (24 HR) Succ [Toprol 50 mg PO DAILY 03/30/16 03/30/16 XL] Ropinirole HCl [Requip] 3 mg PO TID 03/30/16 03/30/16 Allergies Allergy/AdvReac Type Severity Reaction Status Date / Time Penicillins Allergy See Verified 03/30/16 07:43 Comments Sulfa (Sulfonamide Allergy See Verified 03/30/16 07:43 Antibiotics) Comments Zolpidem [From Ambien] Allergy Unresponsiv Verified 03/30/16 07:43 e Past Medical History - Past Medical History Medical history: Reports: dementia, GERD, hyperlipidemia, hypertension Surgical history: Reports: no surgical history Psychiatric history: Reports: anxiety, depression - Social History Smoking Status: Never smoker Smokeless Tobacco Status: No Alcohol use: Reports: none Drug use: Reports: none Physical Exam - General Limitations: other General appearance: alert, in distress Course Vital Signs Temperature 98.0 F 03/30/16 07:34 Pulse Rate 117 03/30/16 07:34 Respiratory Rate 42 03/30/16 07:34 Blood Pressure 181/83 03/30/16 07:34 O2 Sat by Pulse Oximetry 92 L 03/30/16 07:34 Temperature 98.0 F 03/30/16 07:34 Pulse Rate 130 03/30/16 10:27 Respiratory Rate 49 03/30/16 10:27 Blood Pressure 119/76 03/30/16 10:27 O2 Sat by Pulse Oximetry 95 03/30/16 10:27 Oxygen Delivery Oxygen Delivery Bipap Medical Decision Making - MDM Narrative Medical decision making narrative: I examined this patient and my medical decision-making was reviewed with the [employer]PA/Advanced Practice Nurse/Resident Physician. I agree with the documented findings, disposition and treatment plan as described except to the extent set forth below. Patient is stable at this time. has made him a DNR CC from a DNR CC arrest. He is being admitted at this time. His critical care time excluding any separately billable procedures is 40 minutes. - Lab Data Result diagrams: 03/30/16 07:40 03/30/16 07:40 Lab Results 03/30/16 03/30/16 03/30/16 Range/Units 07:40 07:40 07:40 WBC 14.7 H (4.3-11.1) K/mcL RBC 5.36 (4.19-5.50) M/mcL Hgb 16.1 (12.9-16.9) g/dL Hct 51.5 H (37.5-50.1) % MCV 96.1 (83.0-100.0) fL MCH 30.0 (28.0-33.3) pg MCHC 31.3 L (31.6-35.5) g/dL RDW 13.0 (11.5-14.5) % Plt Count 217 (140-400) K/mcL MPV 9.5 (9.4-12.4) fL Immature Gran % 0.4 (0-4) % Seg Neutrophils % 87.5 % Lymphocytes % 7.0 % Monocytes % 4.9 % Eosinophils % 0.1 % Basophils % 0.1 % Neutrophils # 12.8 H (1.6-8.9) K/mcL Lymphocytes # 1.0 (0.6-4.6) K/mcL Monocytes # 0.7 (0.0-1.3) K/mcL Eosinophils # 0.0 (0.0-0.6) K/mcL Basophils # 0.0 (0.0-0.2) K/mcL PT 10.1 (9.4-12.1) Seconds INR 0.9 APTT 21.9 L (26.0-36.0) Seconds ABG pH (7.32-7.45) pH Units ABG pCO2 (35-45) mmHg ABG pO2 (85-104) mmHg ABG HCO3 (21-27) mEQ/L ABG Total CO2 (20-26) mEq/L ABG O2 Saturation (95-98) % ABG Base Excess (-2.0 to 3.0) mEq/L Blood Gas Modality Inspired O2 % Sodium 146 H (136-145) mEq/L Potassium 4.1 (3.5-4.5) mEq/L Chloride 101 (98-109) mEq/L Carbon Dioxide 36 H (19-29) mEq/L BUN 20 (8-26) mg/dL Creatinine 0.84 (0.72-1.25) mg/dL Est GFR ( Amer) > 60 (> 60) Est GFR (Non-Af Amer) > 60 (> 60) BUN/Creatinine Ratio 24 (6-26) Glucose 177 H (70-99) mg/dL Calculated Osmolality 309 H (280-300) Lactic Acid (0.5-2.2) mmol/L Calcium 9.5 (8.6-10.8) mg/dL Troponin I (0-0.03) ng/mL B-Natriuretic Peptide (0-100) pg/mL 03/30/16 03/30/16 03/30/16 Range/Units 07:40 07:40 07:50 WBC (4.3-11.1) K/mcL RBC (4.19-5.50) M/mcL Hgb (12.9-16.9) g/dL Hct (37.5-50.1) % MCV (83.0-100.0) fL MCH (28.0-33.3) pg MCHC (31.6-35.5) g/dL RDW (11.5-14.5) % Plt Count (140-400) K/mcL MPV (9.4-12.4) fL Immature Gran % (0-4) % Seg Neutrophils % % Lymphocytes % % Monocytes % % Eosinophils % % Basophils % % Neutrophils # (1.6-8.9) K/mcL Lymphocytes # (0.6-4.6) K/mcL Monocytes # (0.0-1.3) K/mcL Eosinophils # (0.0-0.6) K/mcL Basophils # (0.0-0.2) K/mcL PT (9.4-12.1) Seconds INR APTT (26.0-36.0) Seconds ABG pH 7.28 L (7.32-7.45) pH Units ABG pCO2 88 H* (35-45) mmHg ABG pO2 80 L (85-104) mmHg ABG HCO3 41.4 H (21-27) mEQ/L ABG Total CO2 44.1 H (20-26) mEq/L ABG O2 Saturation 94 L (95-98) % ABG Base Excess 9.8 H (-2.0 to 3.0) mEq/L Blood Gas Modality BIPAP Inspired O2 100 % Sodium (136-145) mEq/L Potassium (3.5-4.5) mEq/L Chloride (98-109) mEq/L Carbon Dioxide (19-29) mEq/L BUN (8-26) mg/dL Creatinine (0.72-1.25) mg/dL Est GFR ( Amer) (> 60) Est GFR (Non-Af Amer) (> 60) BUN/Creatinine Ratio (6-26) Glucose (70-99) mg/dL Calculated Osmolality (280-300) Lactic Acid (0.5-2.2) mmol/L Calcium (8.6-10.8) mg/dL Troponin I 0.01 (0-0.03) ng/mL B-Natriuretic Peptide 27 (0-100) pg/mL 03/30/16 Range/Units 08:02 WBC (4.3-11.1) K/mcL RBC (4.19-5.50) M/mcL Hgb (12.9-16.9) g/dL Hct (37.5-50.1) % MCV (83.0-100.0) fL MCH (28.0-33.3) pg MCHC (31.6-35.5) g/dL RDW (11.5-14.5) % Plt Count (140-400) K/mcL MPV (9.4-12.4) fL Immature Gran % (0-4) % Seg Neutrophils % % Lymphocytes % % Monocytes % % Eosinophils % % Basophils % % Neutrophils # (1.6-8.9) K/mcL Lymphocytes # (0.6-4.6) K/mcL Monocytes # (0.0-1.3) K/mcL Eosinophils # (0.0-0.6) K/mcL Basophils # (0.0-0.2) K/mcL PT (9.4-12.1) Seconds INR APTT (26.0-36.0) Seconds ABG pH (7.32-7.45) pH Units ABG pCO2 (35-45) mmHg ABG pO2 (85-104) mmHg ABG HCO3 (21-27) mEQ/L ABG Total CO2 (20-26) mEq/L ABG O2 Saturation (95-98) % ABG Base Excess (-2.0 to 3.0) mEq/L Blood Gas Modality Inspired O2 % Sodium (136-145) mEq/L Potassium (3.5-4.5) mEq/L Chloride (98-109) mEq/L Carbon Dioxide (19-29) mEq/L BUN (8-26) mg/dL Creatinine (0.72-1.25) mg/dL Est GFR ( Amer) (> 60) Est GFR (Non-Af Amer) (> 60) BUN/Creatinine Ratio (6-26) Glucose (70-99) mg/dL Calculated Osmolality (280-300) Lactic Acid 3.3 H (0.5-2.2) mmol/L Calcium (8.6-10.8) mg/dL Troponin I (0-0.03) ng/mL B-Natriuretic Peptide (0-100) pg/mL
[2016-03-30] MEDS ORDERED: Vancomycin 1,250 MG in D5% in Water 250 ML IVPB ONE (12:00)
[2016-03-30] MEDS: Ipratropium/Albuterol Neb 3 ML IH SCH ×3 (12:59→21:35)
[2016-03-30] MEDS: Budesonide/Formoterol 80/4.5 MDI IH SCH ×2 (13:00→21:38)
[2016-03-30] MEDS: D5% in 0.45% NACL 1,000 ML IVC SCH (13:31)
[2016-03-30] MEDS: Carbidopa/Levodopa 25/100 TABLET GTUBE SCH ×4 (16:08→19:30)
[2016-03-30] MEDS: MethylPREDNISolone 40 MG/ML VIAL IVP SCH ×2 (16:12→23:49)
[2016-03-30] MEDS: *HR* Morphine 2 MG/ML SYRINGE IVP PRN ×2 (16:16→22:06)
[2016-03-30] MEDS: *HR* Heparin 5,000 UNIT/ML VIAL SQ SCH (19:32)
--- NOTE | 2016-03-30 19:41 | Electrocardiograph Report ---
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
[2016-03-30] MEDS: Cefepime HCl 1,000 MG in D5% in Water (Mini-Bag+) 100 ML IVPB SCH (21:53)
[2016-03-30] MEDS: *HR* LORazepam 2 MG/ML VIAL IVP PRN (22:49)
[2016-03-31] MEDS: *HR* LORazepam 2 MG/ML VIAL IVP PRN ×6 (00:50→21:13)
[2016-03-31] MEDS: Vancomycin 1,250 MG in D5% in Water 250 ML IVPB SCH ×2 (00:50→13:17)
[2016-03-31] MEDS: *HR* Morphine 2 MG/ML SYRINGE IVP PRN ×5 (02:20→23:24)
[2016-03-31] MEDS: Ipratropium/Albuterol Neb 3 ML IH SCH ×4 (03:47→21:17)
[2016-03-31 04:45] LABS: Hematocrit 45.6 % (37.5-50.1); Mean Corpuscular HGB Conc 31.8 g/dL (31.6-35.5); Mean Corpuscular Hemoglobin 30.5 pg (28.0-33.3); Mean Corpuscular Volume 95.8 fL (83.0-100.0); Mean Platelet Volume 10.6 fL (9.4-12.4); Platelet Count 162 K/mcL (140-400); Red Blood Count 4.76 M/mcL (4.19-5.50); Red Cell Distribution Width 12.9 % (11.5-14.5)
[2016-03-31 05:11] LABS: Hemoglobin 14.5 g/dL (12.9-16.9)
[2016-03-31 05:14] LABS: Alanine Aminotransferase 26 Units/L (0-55); Albumin 2.9 g/dL (3.5-5.0); Albumin/Globulin Ratio 0.8 (1.1-2.2); Alkaline Phosphatase 37 Units/L (38-126); Aspartate Amino Transferase 18 Units/L (5-34); BUN/Creatinine Ratio 29 (6-26); Bilirubin,Total 0.5 mg/dL (0.2-1.2); Blood Urea Nitrogen 20 mg/dL (8-26); Calcium 9.4 mg/dL (8.6-10.8); Carbon Dioxide 33 mEq/L (19-29); Chloride 103 mEq/L (98-109); Globulin 3.6 g/dL (2.4-3.5); Glucose 165 mg/dL (70-99); Osmolality,Calculated 306 (280-300); Potassium 4.3 mEq/L (3.5-4.5); Sodium 145 mEq/L (136-145); Total Protein 6.5 g/dL (6.0-8.3); eGFR For African Americans > 60 (> 60); eGFR For Non-African Americans > 60 (> 60)
[2016-03-31 05:18] LABS: Monocytes # 0.3 K/mcL (0.0-1.3); Neutrophils # 14.9 K/mcL (1.6-8.9); Platelet Estimate Normal (Normal)
[2016-03-31] MEDS: D5% in 0.45% NACL 1,000 ML IVC SCH ×2 (05:35→19:12)
[2016-03-31] MEDS: Carbidopa/Levodopa 25/100 TABLET GTUBE SCH ×8 (08:02→21:41)
[2016-03-31] MEDS: Pantoprazole 40 MG VIAL IVP SCH (08:07)
[2016-03-31] MEDS: Cefepime HCl 1,000 MG in D5% in Water (Mini-Bag+) 100 ML IVPB SCH ×2 (08:08→21:51)
[2016-03-31] MEDS: Levofloxacin 750 MG/150 ML 750 MG/150 ML BAG IVPB SCH (08:08)
[2016-03-31] MEDS: MethylPREDNISolone 40 MG/ML VIAL IVP SCH ×2 (08:08→19:11)
[2016-03-31] MEDS: *HR* Heparin 5,000 UNIT/ML VIAL SQ SCH ×2 (08:09→21:51)
[2016-03-31] MEDS ORDERED: cloNIDine HCl 0.1 MG TABLET GTUBE SCH (09:00)
[2016-03-31] MEDS: Budesonide/Formoterol 80/4.5 MDI IH SCH ×2 (09:45→23:35)
--- NOTE | 2016-03-31 09:46 | Internal Med Progress Note ---
Date of Encounter: 03/31/16 Time of Encounter: 09:40 - Assessment and plan (1) Acute on chronic respiratory failure with hypoxemia Current Visit: Yes Status: Acute Assessment and plan: Acute on chronic hypoxic and hypercapnic respiratory failure due to Sepsis secondary to acute COPD exacerbation from healthcare associated pneumonia/ possible aspiration pneumonia present upon admission Cefepime, Levaquin and vancomycin day 2 Solu-Medrol IV Aspiration precautions, continue BiPAP, check an ABG to adjust settings as the patient appears to be in respiratory distress The patient has a poor prognosis and the risks were explained to his . She would not consider comfort measures for now Continue IV fluids (2) HCAP (healthcare-associated pneumonia) Current Visit: Yes Status: Acute (3) Sepsis Current Visit: Yes Status: Acute Qualifiers: Sepsis type: sepsis due to unspecified organism Qualified Code(s): A41.9 - Sepsis, unspecified organism (4) Dysphagia Current Visit: Yes Status: Chronic Assessment and plan: Keep nothing by mouth for now Consider speech therapy when possible Qualifiers: Qualified Code(s): R13.10 - Dysphagia, unspecified (5) Hypertension Current Visit: Yes Status: Chronic Qualifiers: Hypertension type: essential hypertension Qualified Code(s): I10 - Essential (primary) hypertension (6) Parkinsons Current Visit: Yes Status: Chronic Assessment and plan: Progressing over the past few years High risk due to respiratory failure The patient is a DNR CC arrest DNI - Time Spent With Patient Greater than 35 minutes - Subjective Interval history: The patient is very lethargic, respiratory distress despite the use of BiPAP. Unable to provide any history due to his critical state. Information was provided by his who is at his bedside - Constitutional Vitals: Temp Pulse Resp BP Pulse Ox 98.2 F 87 52 143/70 95 03/31/16 07:17 03/31/16 07:17 03/31/16 07:17 03/31/16 07:17 03/31/16 07:17 General appearance: Present: A&O X 0, disheveled, mild distress. Absent: answers questions appropriately - Head Head exam: Present: atraumatic, normocephalic - Eye Eye exam: Present: PERRL, conjuntiva pink, sclera anicteric Pupils: Present: PERRL - Neck Neck exam general surgery: Present: supple, trachea midline. Absent: lymphadenopathy - Respiratory Respiratory exam: Present: CTAB, rales (Diffuse crackles with fine wheezing in both lungs). Absent: accessory muscle use, rhonchi, wheezes - Cardiovascular Cardiovascular exam: Present: RRR, +S1, +S2. Absent: diastolic murmur, gallop, rubs, systolic murmur - GI/Abdominal GI/Abdominal exam: Present: normal bowel sounds, soft, no peritoneal signs. Absent: distended, tenderness - Extremities Exam Extremities exam: Present: warm, radial pulses palpable and symetrical. Absent : calf tenderness, cyanotic, pedal edema Additional comments: Mcclain catheter in place BiPAP in place - Neurological Exam Neurological exam: Present: CN II-XII intact, no focal deficits. Absent: oriented X3, pronater drift, facial droop, speech deficit - Skin Skin exam: Present: dry, intact Internal Medicine: Result - Labs CBC & Chem 7: 03/31/16 03:20 03/31/16 03:20 Labs: Short CBC 03/31/16 Range/Units 03:20 WBC 16.6 H (4.3-11.1) K/mcL Hgb 14.5 D (12.9-16.9) g/dL Hct 45.6 (37.5-50.1) % Plt Count 162 (140-400) K/mcL Neutrophils # 14.9 H (1.6-8.9) K/mcL BMP 03/31/16 03:20 Sodium 145 Potassium 4.3 Chloride 103 Carbon Dioxide 33 H BUN 20 Creatinine 0.70 L Glucose 165 H Calcium 9.4 Liver Function 03/31/16 Range/Units 03:20 Total Bilirubin 0.5 (0.2-1.2) mg/dL AST 18 (5-34) Units/L ALT 26 (0-55) Units/L Alkaline Phosphatase 37 L (38-126) Units/L Albumin 2.9 L (3.5-5.0) g/dL - ABG Interpretation ABG results: ABG ABG pH 7.28 pH Units (7.32-7.45) L 03/30/16 07:50 ABG pCO2 88 mmHg (35-45) H* 03/30/16 07:50 ABG pO2 80 mmHg (85-104) L 03/30/16 07:50 ABG O2 Saturation 94 % (95-98) L 03/30/16 07:50 PT/INR, D-dimer PT 10.1 Seconds (9.4-12.1) 03/30/16 07:40 Consult Discharge Plan - Plan Referrals: Roxi Estrada DO [Primary Care Provider] -
[2016-03-31 09:49] LABS: ABG HCO3 36.3 mEQ/L (21-27); ABG PCO2 56 mmHg (35-45); ABG PH 7.42 pH Units (7.32-7.45); ABG PO2 74 mmHg (85-104)
[2016-03-31 09:50] LABS: ABG Base Excess 11.8 mEq/L (-2.0 to 3.0); ABG Oxygen Saturation 95 % (95-98); Blood Gas FiO2 60 %
[2016-03-31] MEDS ORDERED: Furosemide 20 MG/2 ML VIAL IVP ONE (19:16)
[2016-03-31] MEDS: *HR* Metoprolol 5 MG/5 ML VIAL IVP PRN (21:15)
[2016-03-31] MEDS: *HR* LORazepam Oral Conc 2 MG/ML GTUBE SCH (21:41)
[2016-04-01 00:58] LABS: Hematocrit 44.4 % (37.5-50.1); Hemoglobin 14.2 g/dL (12.9-16.9); Mean Corpuscular Hemoglobin 30.3 pg (28.0-33.3); Mean Corpuscular Volume 94.9 fL (83.0-100.0); Mean Platelet Volume 10.1 fL (9.4-12.4); Platelet Count 192 K/mcL (140-400); Red Blood Count 4.68 M/mcL (4.19-5.50); Red Cell Distribution Width 12.8 % (11.5-14.5)
[2016-04-01] MEDS: MethylPREDNISolone 40 MG/ML VIAL IVP SCH ×3 (01:00→16:40)
[2016-04-01] MEDS: Vancomycin 1,250 MG in D5% in Water 250 ML IVPB SCH (01:01)
[2016-04-01 01:03] LABS: BUN/Creatinine Ratio 30 (6-26); Blood Urea Nitrogen 21 mg/dL (8-26); Calcium 9.4 mg/dL (8.6-10.8); Carbon Dioxide 36 mEq/L (19-29); Chloride 100 mEq/L (98-109); Glucose 157 mg/dL (70-99); Osmolality,Calculated 302 (280-300); Potassium 4.3 mEq/L (3.5-4.5); Sodium 143 mEq/L (136-145); eGFR For African Americans > 60 (> 60); eGFR For Non-African Americans > 60 (> 60)
[2016-04-01] MEDS: *HR* Morphine 2 MG/ML SYRINGE IVP PRN ×4 (01:21→21:33)
[2016-04-01] MEDS: *HR* LORazepam 2 MG/ML VIAL IVP PRN ×4 (02:41→21:45)
[2016-04-01] MEDS: Ipratropium/Albuterol Neb 3 ML IH SCH ×4 (03:49→21:14)
[2016-04-01] MEDS: D5% in 0.45% NACL 1,000 ML IVC SCH (06:42)
[2016-04-01] MEDS: Pantoprazole 40 MG VIAL IVP SCH (08:51)
[2016-04-01] MEDS: Vancomycin 1,750 MG in D5% in Water 500 ML IVPB SCH ×2 (08:52→20:19)
[2016-04-01] MEDS: Levofloxacin 750 MG/150 ML 750 MG/150 ML BAG IVPB SCH (08:52)
[2016-04-01] MEDS: *HR* Heparin 5,000 UNIT/ML VIAL SQ SCH ×2 (08:52→20:24)
[2016-04-01] MEDS: Carbidopa/Levodopa 25/100 TABLET GTUBE SCH ×8 (09:09→19:56)
[2016-04-01] MEDS: *HR* LORazepam Oral Conc 2 MG/ML GTUBE SCH ×2 (09:09→19:55)
--- NOTE | 2016-04-01 09:39 | Internal Med Progress Note ---
Date of Encounter: 04/01/16 Time of Encounter: 09:37 - Assessment and plan (1) Acute on chronic respiratory failure with hypoxemia Current Visit: Yes Status: Acute Assessment and plan: Acute on chronic hypoxic and hypercapnic respiratory failure due to Sepsis secondary to acute COPD exacerbation from healthcare associated pneumonia/ possible aspiration pneumonia present upon admission Cefepime, Levaquin and vancomycin day 3 Solu-Medrol IV Aspiration precautions, continue BiPAP check an ABG to adjust settings The patient has a poor prognosis and the risks were explained to his family in detail. They would not consider comfort measures for now Continue IV fluids (2) HCAP (healthcare-associated pneumonia) Current Visit: Yes Status: Acute (3) Sepsis Current Visit: Yes Status: Acute Qualifiers: Sepsis type: sepsis due to unspecified organism Qualified Code(s): A41.9 - Sepsis, unspecified organism (4) Dysphagia Current Visit: Yes Status: Chronic Assessment and plan: Keep nothing by mouth for now Consider speech therapy when possible Qualifiers: Qualified Code(s): R13.10 - Dysphagia, unspecified (5) Hypertension Current Visit: Yes Status: Chronic Qualifiers: Hypertension type: essential hypertension Qualified Code(s): I10 - Essential (primary) hypertension (6) Parkinsons Current Visit: Yes Status: Chronic Assessment and plan: Progressing over the past few years High risk due to respiratory failure The patient is a DNR CC arrest DNI - Time Spent With Patient Greater than 35 minutes - Subjective Interval history: The patient is not waking up, less respiratory distress than yesterday, still on BiPAP. Unable to provide any history due to his critical state. Information was provided by his who is at his bedside - Constitutional Vitals: Temp Pulse Resp BP Pulse Ox 98.0 F 97 39 135/75 100 04/01/16 07:16 04/01/16 08:03 04/01/16 07:16 04/01/16 07:16 04/01/16 07:16 General appearance: Present: A&O X 0, disheveled, mild distress. Absent: answers questions appropriately - Head Head exam: Present: atraumatic, normocephalic - Eye Eye exam: Present: PERRL, conjuntiva pink, sclera anicteric Pupils: Present: PERRL - Neck Neck exam general surgery: Present: supple, trachea midline. Absent: lymphadenopathy - Respiratory Respiratory exam: Present: decreased breath sounds, CTAB, rales (Diffuse fine crackles). Absent: accessory muscle use, rhonchi, wheezes - Cardiovascular Cardiovascular exam: Present: RRR, +S1, +S2. Absent: diastolic murmur, gallop, rubs, systolic murmur - GI/Abdominal GI/Abdominal exam: Present: normal bowel sounds, soft, no peritoneal signs. Absent: distended, tenderness - Extremities Exam Extremities exam: Present: warm, radial pulses palpable and symetrical. Absent : calf tenderness, cyanotic, pedal edema - Neurological Exam Neurological exam: Present: CN II-XII intact, no focal deficits. Absent: oriented X3, pronater drift, facial droop, speech deficit - Skin Skin exam: Present: dry, intact Internal Medicine: Result - Labs CBC & Chem 7: 04/01/16 00:31 04/01/16 00:31 Labs: Short CBC 04/01/16 Range/Units 00:31 WBC 17.4 H (4.3-11.1) K/mcL Hgb 14.2 (12.9-16.9) g/dL Hct 44.4 (37.5-50.1) % Plt Count 192 (140-400) K/mcL BMP 04/01/16 00:31 Sodium 143 Potassium 4.3 Chloride 100 Carbon Dioxide 36 H BUN 21 Creatinine 0.69 L Glucose 157 H Calcium 9.4 - ABG Interpretation ABG results: ABG ABG pH 7.42 pH Units (7.32-7.45) 03/31/16 09:40 ABG pCO2 56 mmHg (35-45) H 03/31/16 09:40 ABG pO2 74 mmHg (85-104) L 03/31/16 09:40 ABG O2 Saturation 95 % (95-98) 03/31/16 09:40 PT/INR, D-dimer PT 10.1 Seconds (9.4-12.1) 03/30/16 07:40 Consult Discharge Plan - Plan Referrals: Roxi Estrada DO [Primary Care Provider] -
[2016-04-01 09:53] LABS: ABG Base Excess 14.8 mEq/L (-2.0 to 3.0); ABG HCO3 36.5 mEQ/L (21-27); ABG Oxygen Saturation 100 % (95-98); ABG PCO2 60 mmHg (35-45); ABG PH 7.45 pH Units (7.32-7.45); ABG PO2 241 mmHg (85-104); ABG TCO2 43.5 mEq/L (20-26); Blood Gas FiO2 60 %
[2016-04-01] MEDS: Budesonide/Formoterol 80/4.5 MDI IH SCH ×2 (10:25→21:15)
[2016-04-01 10:53] LABS: Basophils % 0.1 %; Hemoglobin 13.9 g/dL (12.9-16.9); Immature Granulocytes % 0.4 % (0-4); Immature Platelets 3.7 % (1.1-6.1); Lymphocytes # 0.7 K/mcL (0.6-4.6); Lymphocytes % 5.7 %; Mean Corpuscular HGB Conc 31.6 g/dL (31.6-35.5); Mean Platelet Volume 9.9 fL (9.4-12.4); Monocytes # 0.4 K/mcL (0.0-1.3); Monocytes % 3.6 %; Neutrophils # 10.7 K/mcL (1.6-8.9); Platelet Count 175 K/mcL (140-400); Red Blood Count 4.63 M/mcL (4.19-5.50); Red Cell Distribution Width 12.8 % (11.5-14.5); Segmented Neutrophils % 90.2 %
[2016-04-01] MEDS: Cefepime HCl 1,000 MG in D5% in Water (Mini-Bag+) 100 ML IVPB SCH ×2 (11:00→21:36)
[2016-04-02] MEDS: *HR* LORazepam 2 MG/ML VIAL IVP PRN ×3 (00:37→08:41)
[2016-04-02] MEDS: MethylPREDNISolone 40 MG/ML VIAL IVP SCH ×2 (00:37→08:34)
[2016-04-02] MEDS: *HR* Metoprolol 5 MG/5 ML VIAL IVP PRN (00:37)
[2016-04-02 03:54] LABS: BUN/Creatinine Ratio 34 (6-26); Blood Urea Nitrogen 21 mg/dL (8-26); Calcium 9.5 mg/dL (8.6-10.8); Carbon Dioxide 34 mEq/L (19-29); Chloride 101 mEq/L (98-109); Glucose 137 mg/dL (70-99); Osmolality,Calculated 297 (280-300); Potassium 4.1 mEq/L (3.5-4.5); Sodium 141 mEq/L (136-145); eGFR For African Americans > 60 (> 60); eGFR For Non-African Americans > 60 (> 60)
[2016-04-02] MEDS: *HR* Morphine 2 MG/ML SYRINGE IVP PRN ×2 (04:17→12:39)
[2016-04-02] MEDS: Ipratropium/Albuterol Neb 3 ML IH SCH ×3 (04:40→15:30)
[2016-04-02] MEDS: *HR* Heparin 5,000 UNIT/ML VIAL SQ SCH (08:34)
[2016-04-02] MEDS: Pantoprazole 40 MG VIAL IVP SCH (08:34)
[2016-04-02] MEDS: Levofloxacin 750 MG/150 ML 750 MG/150 ML BAG IVPB SCH (08:35)
[2016-04-02] MEDS: D5% in 0.45% NACL 1,000 ML IVC SCH (08:36)
[2016-04-02] MEDS: *HR* LORazepam Oral Conc 2 MG/ML GTUBE SCH (08:37)
[2016-04-02] MEDS: Carbidopa/Levodopa 25/100 TABLET GTUBE SCH ×5 (08:37→14:38)
[2016-04-02] MEDS: Vancomycin 1,750 MG in D5% in Water 500 ML IVPB SCH (08:50)
[2016-04-02] MEDS: Cefepime HCl 1,000 MG in D5% in Water (Mini-Bag+) 100 ML IVPB SCH (09:44)
[2016-04-02] MEDS ORDERED: *HR* LORazepam 2 MG/ML VIAL IVP PRN (10:37)
[2016-04-02] MEDS ORDERED: *HR* Morphine 2 MG/ML SYRINGE IVP PRN (10:38)
[2016-04-02] MEDS ORDERED: Glycopyrrolate 0.2 MG/ML VIAL IVP PRN (10:38)
--- NOTE | 2016-04-02 10:43 | Internal Med Progress Note ---
Date of Encounter: 04/02/16 Time of Encounter: 10:40 - Assessment and plan (1) Acute on chronic respiratory failure with hypoxemia Current Visit: Yes Status: Acute Assessment and plan: Acute on chronic hypoxic and hypercapnic respiratory failure due to Sepsis secondary to acute COPD exacerbation from healthcare associated pneumonia/ possible aspiration pneumonia present upon admission I had a long discussion with the patient's family and son who agreed that the patient's prognosis is very poor and his quality of life was bad even before coming to the hospital. They agreed to switch his CODE STATUS to DNR CC and pursue only comfort measures. Palliative care will be consulted, will provide morphine, Ativan as needed. Scopolamine patch and Robinul. Discontinue all other treatment Discontinue: Cefepime, Levaquin and vancomycin day 4 Solu-Medrol IV Aspiration precautions, discontinue BiPAP The patient has a poor prognosis and the risks were explained to his family in detail. They would not consider comfort measures for now DisContinue IV fluids (2) HCAP (healthcare-associated pneumonia) Current Visit: Yes Status: Acute (3) Sepsis Current Visit: Yes Status: Acute Qualifiers: Sepsis type: sepsis due to unspecified organism Qualified Code(s): A41.9 - Sepsis, unspecified organism (4) Dysphagia Current Visit: Yes Status: Chronic Assessment and plan: Can resume diet is the patient wants Qualifiers: Qualified Code(s): R13.10 - Dysphagia, unspecified (5) Hypertension Current Visit: Yes Status: Chronic Qualifiers: Hypertension type: essential hypertension Qualified Code(s): I10 - Essential (primary) hypertension (6) Parkinsons Current Visit: Yes Status: Chronic Assessment and plan: Progressing over the past few years High risk due to respiratory failure The patient is a DNR CC - Time Spent With Patient Greater than 35 minutes - Subjective Interval history: Patient is more lethargic, obtunded The patient is not waking up, in respiratory distress , still on BiPAP. Unable to provide any history due to his critical state. Information was provided by his who is at his bedside - Constitutional Vitals: Temp Pulse Resp BP Pulse Ox 97.5 F L 102 47 166/85 100 04/02/16 07:13 04/02/16 07:13 04/02/16 07:13 04/02/16 07:13 04/02/16 07:13 General appearance: Present: A&O X 0, disheveled, mild distress. Absent: answers questions appropriately - Head Head exam: Present: atraumatic, normocephalic - Eye Eye exam: Present: PERRL, conjuntiva pink, sclera anicteric Pupils: Present: PERRL Additional comments: BiPAP in place - Neck Neck exam general surgery: Present: supple, trachea midline. Absent: lymphadenopathy - Respiratory Respiratory exam: Present: CTAB, rales (Diffuse crackles and wheezing). Absent : accessory muscle use, rhonchi, wheezes - Cardiovascular Cardiovascular exam: Present: RRR, +S1, +S2. Absent: diastolic murmur, gallop, rubs, systolic murmur - GI/Abdominal GI/Abdominal exam: Present: distended, normal bowel sounds, soft, no peritoneal signs. Absent: tenderness - Extremities Exam Extremities exam: Present: warm, radial pulses palpable and symetrical. Absent : calf tenderness, cyanotic, pedal edema - Neurological Exam Neurological exam: Present: no focal deficits. Absent: CN II-XII intact, oriented X3, pronater drift, facial droop, speech deficit - Skin Skin exam: Present: dry, intact Internal Medicine: Result - Labs CBC & Chem 7: 04/01/16 10:46 04/02/16 03:11 Labs: Short CBC 04/01/16 Range/Units 10:46 WBC 11.9 H (4.3-11.1) K/mcL Hgb 13.9 (12.9-16.9) g/dL Hct 44.0 (37.5-50.1) % Plt Count 175 (140-400) K/mcL Neutrophils # 10.7 H (1.6-8.9) K/mcL BMP 04/02/16 03:11 Sodium 141 Potassium 4.1 Chloride 101 Carbon Dioxide 34 H BUN 21 Creatinine 0.61 L Glucose 137 H Calcium 9.5 - ABG Interpretation ABG results: ABG ABG pH 7.45 pH Units (7.32-7.45) 04/01/16 09:45 ABG pCO2 60 mmHg (35-45) H 04/01/16 09:45 ABG pO2 241 mmHg (85-104) H 04/01/16 09:45 ABG O2 Saturation 100 % (95-98) H 04/01/16 09:45 PT/INR, D-dimer PT 10.1 Seconds (9.4-12.1) 03/30/16 07:40 Consult Discharge Plan - Plan Referrals: Roxi Estrada DO [Primary Care Provider] -
[2016-04-02] MEDS ORDERED: Scopolamine Patch 1.5 MG PATCH.TD72 TD SCH (10:45)
[2016-04-02] MEDS: Budesonide/Formoterol 80/4.5 MDI IH SCH (11:37)
[2016-04-02 11:59] VITALS: BP 170/90
--- NOTE | 2016-04-02 12:56 | Palliative - Consult Note ---
<Alvaro Casarez - Last Filed: 04/02/16 13:52> Date of Encounter: 04/02/16 Time of Encounter: 11:30 - Assessment and Plan (1) Goals of care, counseling/discussion Current Visit: Yes Status: Acute Assessment and plan: -Patient AOx3. 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 -Patient has been DNR for past 2 years. Recently switched to DNR-CC. Currently on bipap, wishes to discontinue bipap and put on nasal cannula -Will remove bipap at 's discretion. Hospice has been contacted. Patient will be admitted as GIP for hospice on 2a. -Once on 2a, comfort care only-removal of bipap and placed on nasal cannula per , morphine/pain medicine prn, Ativan, zofran prn, diet as tolerated. Please continue with oral care and turning the patient as needed. -Patient may pass in min to days once removed off bipap. If patient does not decline over the next few days, family understands that patient may be discharged from the hospital and continued on hospice. -Will continue to follow. (2) Acute on chronic respiratory failure with hypoxemia Current Visit: Yes Status: Acute Assessment and plan: -Code status DNR-CC. Stop Abx. Stop Bipap per patient/'s request. -See above. (3) Pneumonia Current Visit: Yes Status: Acute Assessment and plan: -See above Qualifiers: Pneumonia type: due to unspecified organism Laterality: right Lung location: unspecified part of lung Qualified Code(s): J18.9 - Pneumonia, unspecified organism Palliative-CN HPI - Data of Consult Patient: new to practice Consult date: 04/02/16 Requesting Physician: Tucker Huerta Primary Care Provider: Roxi Estrada DO - Consult Narrative Palliative Care/Comfort Measures: Palliative care Reason for consult: Withdraw of care/palliative care History of present illness: Mr. Philip is a 71 year old male, DNR-cc, who was admitted 4 days ago for acute respiratory failure secondary to pneumonia. Since Saturday, patient has been on BiPAP. Refuses intubation. Patient status changed to DNR-CC today and antibiotics have been withdrawn.Patient is alert and oriented x3, able to follow commands and speak. He wishes to remove the bipap and understands that if bipap is removed, he could pass away within mins. He wishes to pass away in the hospital. and son are present in room. is JONATHAN, . Patient has been living at [facility] for the past 2 years- unable to care for him due to broken leg and advance parkinsons disease. CC: Tucker Huerat Past Med Surg Social Fam HX - Past Medical History Medical history: dementia, GERD, hyperlipidemia, hypertension Psychiatric history: anxiety, depression - Past Surgical History Surgical History: no surgical history - Social History Smoking Status: Never smoker Smokeless Tobacco Status: No Alcohol use: none Drug use: none - Family History Mother Living Status: Hx Family Neurologic Disorders: Yes (Parkinsons) Father Living Status: Still Living Hx Family Cardiac Disorders: Yes (Mi,Stroke) Hx Family Neurologic Disorders: Yes (Dementia) Hx Family Autoimmune Disorders: Yes Medications and Allergies Acetaminophen [8 Hour] 650 mg PO Q6H PRN 07/08/15 [History] Benztropine [Cogentin] 1 mg PO BID 07/08/15 [History] Carbidopa/Levodopa 25/100 [Sinemet 25/100] 1 each PO Q2H MDD 7 a.m. thru 9 p.m. 07/08/15 [History] Cholecalciferol (Vitamin D3) [Vitamin D] 400 unit PO DAILY 07/08/15 [History] Cyclosporine [Restasis] 1 each BOTH EYES BID 07/08/15 [History] Doxycycline Hyclate [Vibramycin] 100 mg PO BID 07/08/15 [History] Fluticasone Propionate Nasal [Flonase] 50 mcg NS DAILY 07/08/15 [History] Gabapentin [Neurontin] 900 mg PO TID 07/08/15 [History] Loperamide [Imodium] 2 mg PO Q8HR PRN 07/08/15 [History] Losartan/HCTZ [Hyzaar 50-12.5 Tablet] 0.5 each PO DAILY 07/08/15 [History] Melatonin 10 mg PO HS PRN 07/08/15 [History] Meloxicam [Mobic] 7.5 mg PO HS 07/08/15 [History] Memantine [Namenda] 10 mg PO BID 07/08/15 [History] Mirtazapine [Remeron] 15 mg PO HS 07/08/15 [History] Multivitamin [Multivitamins] 1 cap PO DAILY 07/08/15 [History] Adams-3/Dha/Epa/Fish Oil [Fish Oil Adams-3 EC 1,200 mg] 1 each PO BID 07/08/15 [ History] Oxycodone HCl/Acetaminophen [Percocet 5-325 mg Tablet] 1 each PO Q4HR PRN [History] Pantoprazole Sodium [Protonix] 40 mg PO BID 07/08/15 [History] Simvastatin [Zocor] 20 mg PO HS 07/08/15 [History] Acetaminophen [Tylenol Arthritis] 650 mg PO TID 03/30/16 [History] Carbidopa/Levodopa 25/100 [Sinemet 25/100] 1 each PO DAILY PRN MDD Between 1-2 a.m. only 03/30/16 [History] CloNIDine HCl 0.1 mg PO DAILY 03/30/16 [History] Cyclobenzaprine HCl 5 mg PO HS 03/30/16 [History] Donepezil HCl 23 mg PO DAILY 03/30/16 [History] Guaifenesin [Mucinex] 1,200 mg PO BID PRN 03/30/16 [History] Metoprolol XL (24 HR) Succ [Toprol Xl] 50 mg PO DAILY 03/30/16 [History] Ropinirole HCl [Requip] 3 mg PO TID 03/30/16 [History] CloNIDine Patch [Catapres-Tts] 0.1 mg TD QWEEK patch.tdwk 04/02/16 [Rx] Glycopyrrolate [Robinul] 0.2 mg IVP Q4H PRN #0 vial 04/02/16 [Rx] LORazepam Oral Conc [Ativan Oral Conc] 1 mg GTUBE BID mls 04/02/16 [Rx] Morphine [Morphine Sulfate] 4 mg IVP Q2H PRN #0 syringe 04/02/16 [Rx] Scopolamine Patch [Transderm-Scop] 1.5 mg TD Q72H patch.td72 04/02/16 [Rx] Allergies Penicillins Allergy (Verified 03/30/16 07:43) See Comments Unknown Sulfa (Sulfonamide Antibiotics) Allergy (Verified 03/30/16 07:43) See Comments unknown Zolpidem [From Ambien] Allergy (Verified 03/30/16 07:43) Unresponsive - Cardiovascular Cardiovascular ROS: no chest pain - Respiratory Respiratory: no cough Additional comments: SOB - Gastrointestinal Gastrointestinal: no abdominal pain Palliative Care-Exam - Constitutional Vitals: Temp Pulse Resp BP Pulse Ox 97.9 F 99 46 170/90 100 04/02/16 11:50 04/02/16 11:50 04/02/16 11:50 04/02/16 11:50 04/02/16 11:50 General appearance: Present: mild distress - Respiratory Respiratory exam: Present: respiratory distress (currently on bipap), wheezes ( mild) - Cardiovascular Cardiovascular exam: Present: RRR. Absent: diastolic murmur - GI/Abdominal Exam GI/Abdominal exam: Present: diminished bowel sounds, soft. Absent: rigid, tenderness - Extremities Exam Extremities exam: Absent: pedal edema, tenderness Internal Medicine - CN: Reslt - Labs CBC & Chem 7: 04/01/16 10:46 04/02/16 03:11 Labs: BMP 04/02/16 03:11 Sodium 141 Potassium 4.1 Chloride 101 Carbon Dioxide 34 H BUN 21 Creatinine 0.61 L Glucose 137 H Calcium 9.5 - ABG Interpretation ABG results: ABG ABG pH 7.45 pH Units (7.32-7.45) 04/01/16 09:45 ABG pCO2 60 mmHg (35-45) H 04/01/16 09:45 ABG pO2 241 mmHg (85-104) H 04/01/16 09:45 ABG O2 Saturation 100 % (95-98) H 04/01/16 09:45 PT/INR, D-dimer PT 10.1 Seconds (9.4-12.1) 03/30/16 07:40 Consult Discharge Plan - Plan Additional Instructions: Follow with hospice/palliative care service. Continue full comfort measures Referrals: Roxi Estrada DO [Primary Care Provider] - 04/09/16 8:45 am Palliative Quality Code Status: 04/02/16 10:39 CODE [Resuscitation Status: Active] [RES] Routine Comment: Resuscitation Status: DNR-Comfort Care <Travis Mcqueen - Last Filed: 04/02/16 15:12> Date of Encounter: 04/02/16 Palliative-CN HPI - Data of Consult Requesting Physician: Tucker Huerta Primary Care Provider: Roxi Estrada DO - Consult Narrative History of present illness: Mr. Philip is a 71 year old male CC: Tucker Huerta Palliative Care-Exam - Constitutional Vitals: Temp Pulse Resp BP Pulse Ox 97.9 F 99 46 170/90 100 04/02/16 11:50 04/02/16 13:04 04/02/16 11:50 04/02/16 11:50 04/02/16 11:50 Internal Medicine - CN: Reslt - Labs CBC & Chem 7: 04/01/16 10:46 04/02/16 03:11 Labs: BMP 04/02/16 03:11 Sodium 141 Potassium 4.1 Chloride 101 Carbon Dioxide 34 H BUN 21 Creatinine 0.61 L Glucose 137 H Calcium 9.5 - ABG Interpretation ABG results: ABG ABG pH 7.45 pH Units (7.32-7.45) 04/01/16 09:45 ABG pCO2 60 mmHg (35-45) H 04/01/16 09:45 ABG pO2 241 mmHg (85-104) H 04/01/16 09:45 ABG O2 Saturation 100 % (95-98) H 04/01/16 09:45 PT/INR, D-dimer PT 10.1 Seconds (9.4-12.1) 03/30/16 07:40 - Attending Attestation I examined this patient and my medical decision-making was reviewed with the ROUTE SALESMAN/PA/Advanced Practice Nurse/Resident Physician. I agree with the documented findings, disposition and treatment plan as described except to the extent set forth below. Palliative Quality Palliative Quality: Screen for Code Status: Yes, Screen for Goals of Care: Yes, Screen for Pain: Yes, If Pain Regimen Started, Initiate Bowel Regimen: NA, Screen for Nausea/Vomitting: Yes Code Status: 04/02/16 10:39 CODE [Resuscitation Status: Active] [RES] Routine Comment: Resuscitation Status: DNR-Comfort Care
--- NOTE | 2016-04-02 14:07 | Discharge Summary ---
Date of Encounter: 04/02/16 Time of Encounter: 14:04 - Discharge Diagnosis (1) Acute on chronic respiratory failure with hypoxemia Priority: Primary Status: Acute Comments: Acute on chronic hypoxic and hypercapnic respiratory failure due to Sepsis secondary to acute COPD exacerbation from healthcare associated pneumonia/ possible aspiration pneumonia present upon admission (2) HCAP (healthcare-associated pneumonia) Priority: Primary Status: Acute (3) Sepsis Priority: Primary Status: Acute Qualifiers: Sepsis type: sepsis due to unspecified organism Qualified Code(s): A41.9 - Sepsis, unspecified organism (4) Dysphagia Priority: Primary Status: Chronic Qualifiers: Qualified Code(s): R13.10 - Dysphagia, unspecified (5) Hypertension Priority: Secondary Status: Chronic Qualifiers: Hypertension type: essential hypertension Qualified Code(s): I10 - Essential (primary) hypertension (6) Parkinsons Priority: Secondary Status: Chronic - Discharge Medications Home Medications: Acetaminophen [8 Hour] 650 mg PO Q6H PRN 07/08/15 [History] Benztropine [Cogentin] 1 mg PO BID 07/08/15 [History] Carbidopa/Levodopa 25/100 [Sinemet 25/100] 1 each PO Q2H MDD 7 a.m. thru 9 p.m. 07/08/15 [History] Cholecalciferol (Vitamin D3) [Vitamin D] 400 unit PO DAILY 07/08/15 [History] Cyclosporine [Restasis] 1 each BOTH EYES BID 07/08/15 [History] Doxycycline Hyclate [Vibramycin] 100 mg PO BID 07/08/15 [History] Fluticasone Propionate Nasal [Flonase] 50 mcg NS DAILY 07/08/15 [History] Gabapentin [Neurontin] 900 mg PO TID 07/08/15 [History] Loperamide [Imodium] 2 mg PO Q8HR PRN 07/08/15 [History] Losartan/HCTZ [Hyzaar 50-12.5 Tablet] 0.5 each PO DAILY 07/08/15 [History] Melatonin 10 mg PO HS PRN 07/08/15 [History] Meloxicam [Mobic] 7.5 mg PO HS 07/08/15 [History] Memantine [Namenda] 10 mg PO BID 07/08/15 [History] Mirtazapine [Remeron] 15 mg PO HS 07/08/15 [History] Multivitamin [Multivitamins] 1 cap PO DAILY 07/08/15 [History] Roma-3/Dha/Epa/Fish Oil [Fish Oil Roma-3 EC 1,200 mg] 1 each PO BID 07/08/15 [ History] Oxycodone HCl/Acetaminophen [Percocet 5-325 mg Tablet] 1 each PO Q4HR PRN [History] Pantoprazole Sodium [Protonix] 40 mg PO BID 07/08/15 [History] Simvastatin [Zocor] 20 mg PO HS 07/08/15 [History] Acetaminophen [Tylenol Arthritis] 650 mg PO TID 03/30/16 [History] Carbidopa/Levodopa 25/100 [Sinemet 25/100] 1 each PO DAILY PRN MDD Between 1-2 a.m. only 03/30/16 [History] CloNIDine HCl 0.1 mg PO DAILY 03/30/16 [History] Cyclobenzaprine HCl 5 mg PO HS 03/30/16 [History] Donepezil HCl 23 mg PO DAILY 03/30/16 [History] Guaifenesin [Mucinex] 1,200 mg PO BID PRN 03/30/16 [History] Metoprolol XL (24 HR) Succ [Toprol Xl] 50 mg PO DAILY 03/30/16 [History] Ropinirole HCl [Requip] 3 mg PO TID 03/30/16 [History] CloNIDine Patch [Catapres-Tts] 0.1 mg TD QWEEK patch.tdwk 04/02/16 [Rx] Glycopyrrolate [Robinul] 0.2 mg IVP Q4H PRN #0 vial 04/02/16 [Rx] LORazepam Oral Conc [Ativan Oral Conc] 1 mg GTUBE BID mls 04/02/16 [Rx] Morphine [Morphine Sulfate] 4 mg IVP Q2H PRN #0 syringe 04/02/16 [Rx] Scopolamine Patch [Transderm-Scop] 1.5 mg TD Q72H patch.td72 04/02/16 [Rx] Allergies/Adverse Reactions: Allergies Penicillins Allergy (Verified 03/30/16 07:43) See Comments Unknown Sulfa (Sulfonamide Antibiotics) Allergy (Verified 03/30/16 07:43) See Comments unknown Zolpidem [From Ambien] Allergy (Verified 03/30/16 07:43) Unresponsive Date of admission: 03/30/16 12:42 Primary care physician: Roxi Estrada DO Consults: 04/02/16 10:36 Consult to Palliative Care [CONS] Routine Comment: Consulting Provider: Palliative Care Mary - Patient Status Disposition: Hospice - Medical Facility Condition: Critical Overall status at discharge: patient is progressing back to baseline - Discharge Instructions Follow Up With: Roxi Estrada DO [Primary Care Provider] - 04/12/16 2:15 pm Additional Instructions: Follow with hospice/palliative care service. Continue full comfort measures - Diet and Activity Diet: regular diet Hospital course: Mr. Philip is a 71 year old male who was sent from assisted living facility for evaluation of respiratory distress. Patient is currently on BiPAP support and unable to provide any history, history obtained from his at bedside and discussion with ER physician. Patient has had gradually worsening Parkinson disease with associated dementia for at least the last 10-15 years and has been especially declining for the last 2 years. He does have intermittent dysphagia, he is bedbound with muffled speech at baseline. He follows with neurology at [facility] in [place]. His CODE STATUS was DNR comfort care arrest DNI per his wishes. Patient was noted to be tachycardic, tachypneic and hypoxic upon arrival to the emergency room. Labs show mild leukocytosis and lactic acidosis. ABG shows respiratory acidosis with carbon dioxide retention. Chest x-ray shows right- sided perihilar infiltrate. EKG shows sinus tachycardia. On examination, patient continues to be tachypneic in the 40s and tachycardic in the 130s, oxygen saturation high 100% on BiPAP. He is somnolent, not arousable to verbal and tactile stimuli. He is noted to be in a hunched over position, which is his baseline, on BiPAP support. Chest-S1, S2 heard, tachycardia, regular rate and rhythm. Right lung cannot be auscultated due to his posture. Anterior left lung is clear and posterior left lung inspiratory rhonchi can be heard. Abdomen is distended and nontender Extremities-diffuse weakness in lower extremities, intermittent involuntary jerks bilateral upper extremities. Acute on chronic hypoxic and hypercapnic respiratory failure Sepsis secondary to healthcare associated pneumonia Patient was started on IV hydration and broad-spectrum IV antibiotics-vancomycin , cefepime and Levaquin. The patient was started on a BiPAP, unfortunately, he did not improve any ABG showed persistent hypercapnia, his respiratory rate became more elevated in the high 40s and even 50s at times despite treatment. I had a long discussion with the patient's family and son who agreed that the patient's prognosis is very poor and his quality of life was bad even before coming to the hospital. They agreed to switch his CODE STATUS to DNR CC and pursue only comfort measures. Palliative care will be consulted, will provide morphine, Ativan as needed. Scopolamine patch and Robinul. Discontinue all other treatment Discontinue: Cefepime, Levaquin and vancomycin day 4, Solu-Medrol IV Aspiration precautions, discontinue BiPAP The patient has a poor prognosis and the risks were explained to his family in detail. They would not consider comfort measures for now DisContinue IV fluids The patient will be transferred to inpatient hospice. - Time Spent with Patient Total time spent providing and/or coordinating discharge services: Greater than 30 minutes - Constitutional Vitals: Temp Pulse Resp BP Pulse Ox 97.9 F 99 46 170/90 100 04/02/16 11:50 04/02/16 13:04 04/02/16 11:50 04/02/16 11:50 04/02/16 11:50 General appearance: Present: A&O X 0, mild distress, underweight. Absent: answers questions appropriately - Head Head exam: Present: atraumatic, normocephalic - Eye Eye exam: Present: PERRL, conjuntiva pink, sclera anicteric Pupils: Present: PERRL - Neck Neck exam general surgery: Present: supple, trachea midline. Absent: lymphadenopathy - Respiratory Respiratory exam: Present: CTAB, rales, wheezes (Diffuse crackles and wheezing) . Absent: accessory muscle use, rhonchi - Cardiovascular Cardiovascular exam: Present: RRR, +S1, +S2. Absent: diastolic murmur, gallop, rubs, systolic murmur - GI/Abdominal GI/Abdominal exam: Present: normal bowel sounds, soft, no peritoneal signs. Absent: distended, tenderness - Extremities Exam Extremities exam: Present: warm, radial pulses palpable and symetrical. Absent : calf tenderness, cyanotic, pedal edema - Neurological Exam Neurological exam: Present: no focal deficits. Absent: CN II-XII intact, oriented X3, pronater drift, facial droop, speech deficit - Skin Skin exam: Present: dry, intact
== END 2016-04-02 15:29 | disposition hospice, inpatient (51) | DRG 871 ==
LOC: 2NNU 07:32 → EMEROO 07:32 → 2NNU 12:40 → SUATTDRO 12:42
PROVIDERS: ADMIT Internal Medicine; ATTEND Internal Medicine

== ENCOUNTER 2016-04-02 13:23 | Inpatient (IN) ==
[~2016-04-02 13:23] MED LIST: Aminoglycoside Consult 1 EACH MC ONE
[2016-04-02] MEDS ORDERED: *HR* Morphine 2 MG/ML SYRINGE IVP PRN ×2 (14:18→19:07)
[2016-04-02] MEDS ORDERED: *HR* LORazepam 2 MG/ML VIAL IVP PRN (14:20)
[2016-04-02] MEDS ORDERED: Atropine Sulfate 300 DROP/15 ML BOTTLE SL PRN (14:24)
--- NOTE | 2016-04-02 15:24 | Pallative History & Physical ---
<Alvaro Casarez - Last Filed: 04/02/16 15:20> Date of Encounter: 04/02/16 Time of Encounter: 03:00 Assessment and Plan (1) Goals of care, counseling/discussion Status: Acute -Patient AOx3. Discussed with patient, who is the POA, and son and patient' s ammonia box operator together in the room. -Patient has been DNR for past 2 years. Recently switched to DNR-CC. Currently on bipap, wishes to discontinue bipap and put on nasal cannula -Will remove bipap at 's discretion. Hospice has been contacted. Patient admitted to [facility] 2a -Comfort care only-removal of bipap and placed on nasal cannula per , morphine/pain medicine prn, Ativan, zofran prn, diet as tolerated. Please continue with oral care and turning the patient as needed. -Patient may pass in min to days once off bipap. If patient does not decline over the next few days, family understands that patient may be discharged from the hospital and continued on hospice. -Will continue to follow. (2) Hospice care Status: Acute -Awaiting hospice consult, told it would be around 5pm to 6pm tonight. - decided to wait to remove bipap till other son arrived and able to talk with hospice. (3) Acute on chronic respiratory failure with hypoxemia Status: Acute -Withdraw of care. (4) Pneumonia Status: Acute -Withdraw of care Qualifiers: Pneumonia type: due to unspecified organism Laterality: right Lung location: unspecified part of lung Qualified Code(s): J18.9 - Pneumonia, unspecified organism Internal Medicine - H&P: HPI Chief complaint: Acute on chronic respiratory distress Admitted From: Intrahospital Transfer Plans for Post Hospital Care: Hospice - Medical Facility History of present illness: Mr. Philip is a 71 year old male, DNR-cc, who was admitted 4 days ago for acute respiratory failure secondary to pneumonia. Since Saturday, patient has been on BiPAP. Refuses intubation. Patient status changed from DNR to DNR-CC today and antibiotics have been withdrawn.Patient is alert and oriented x3, able to follow commands and speak. He wishes to remove the bipap and understands that if bipap is removed, he could pass away within mins. He wishes to pass away in the hospital. son and personal ammonia box operator are present in room. is JONATHAN, . Patient has been living at [facility] for the past 2 years- unable to care for him due to broken leg and advance parkinsons disease. Patient and family onboard with Hospice involvement in the event that the patient does not pass away. Past Med Surg Social Fam HX - Past Medical History Medical history: dementia, GERD, hyperlipidemia, hypertension Psychiatric history: anxiety, depression - Past Surgical History Surgical History: no surgical history - Social History Smoking Status: Never smoker Smokeless Tobacco Status: No Alcohol use: none Drug use: none - Family History Mother Living Status: Hx Family Neurologic Disorders: Yes (Parkinsons) Father Living Status: Still Living Hx Family Cardiac Disorders: Yes (Mi,Stroke) Hx Family Neurologic Disorders: Yes (Dementia) Hx Family Autoimmune Disorders: Yes Internal Medicine - H&P: Meds Acetaminophen [8 Hour] 650 mg PO Q6H PRN 07/08/15 [History] Benztropine [Cogentin] 1 mg PO BID 07/08/15 [History] Carbidopa/Levodopa 25/100 [Sinemet 25/100] 1 each PO Q2H MDD 7 a.m. thru 9 p.m. 07/08/15 [History] Cholecalciferol (Vitamin D3) [Vitamin D] 400 unit PO DAILY 07/08/15 [History] Cyclosporine [Restasis] 1 each BOTH EYES BID 07/08/15 [History] Doxycycline Hyclate [Vibramycin] 100 mg PO BID 07/08/15 [History] Fluticasone Propionate Nasal [Flonase] 50 mcg NS DAILY 07/08/15 [History] Gabapentin [Neurontin] 900 mg PO TID 07/08/15 [History] Loperamide [Imodium] 2 mg PO Q8HR PRN 07/08/15 [History] Losartan/HCTZ [Hyzaar 50-12.5 Tablet] 0.5 each PO DAILY 07/08/15 [History] Melatonin 10 mg PO HS PRN 07/08/15 [History] Meloxicam [Mobic] 7.5 mg PO HS 07/08/15 [History] Memantine [Namenda] 10 mg PO BID 07/08/15 [History] Mirtazapine [Remeron] 15 mg PO HS 07/08/15 [History] Multivitamin [Multivitamins] 1 cap PO DAILY 07/08/15 [History] Custer-3/Dha/Epa/Fish Oil [Fish Oil Custer-3 EC 1,200 mg] 1 each PO BID 07/08/15 [ History] Oxycodone HCl/Acetaminophen [Percocet 5-325 mg Tablet] 1 each PO Q4HR PRN [History] Pantoprazole Sodium [Protonix] 40 mg PO BID 07/08/15 [History] Simvastatin [Zocor] 20 mg PO HS 07/08/15 [History] Acetaminophen [Tylenol Arthritis] 650 mg PO TID 03/30/16 [History] Carbidopa/Levodopa 25/100 [Sinemet 25/100] 1 each PO DAILY PRN MDD Between 1-2 a.m. only 03/30/16 [History] CloNIDine HCl 0.1 mg PO DAILY 03/30/16 [History] Cyclobenzaprine HCl 5 mg PO HS 03/30/16 [History] Donepezil HCl 23 mg PO DAILY 03/30/16 [History] Guaifenesin [Mucinex] 1,200 mg PO BID PRN 03/30/16 [History] Metoprolol XL (24 HR) Succ [Toprol Xl] 50 mg PO DAILY 03/30/16 [History] Ropinirole HCl [Requip] 3 mg PO TID 03/30/16 [History] CloNIDine Patch [Catapres-Tts] 0.1 mg TD QWEEK patch.tdwk 04/02/16 [Rx] Glycopyrrolate [Robinul] 0.2 mg IVP Q4H PRN #0 vial 04/02/16 [Rx] LORazepam Oral Conc [Ativan Oral Conc] 1 mg GTUBE BID mls 04/02/16 [Rx] Morphine [Morphine Sulfate] 4 mg IVP Q2H PRN #0 syringe 04/02/16 [Rx] Scopolamine Patch [Transderm-Scop] 1.5 mg TD Q72H patch.td72 04/02/16 [Rx] Allergies Penicillins Allergy (Verified 03/30/16 07:43) See Comments Unknown Sulfa (Sulfonamide Antibiotics) Allergy (Verified 03/30/16 07:43) See Comments unknown Zolpidem [From Ambien] Allergy (Verified 03/30/16 07:43) Unresponsive Palliative Care-Exam - Head Head Exam: Present: atraumatic, normal inspection - ENT ENT exam: Present: mucous membranes dry, TM's normal bilaterally - Neck Neck exam: Present: normal inspection. Absent: lymphadenopathy - Expanded Neck Exam Neck exam: Absent: anterior neck swelling - Respiratory Respiratory exam: Present: respiratory distress (on bipap. Stat at 98%), wheezes - Cardiovascular Cardiovascular exam: Present: RRR. Absent: diastolic murmur - GI/Abdominal Exam GI/Abdominal exam: Present: diminished bowel sounds, soft. Absent: rigid, tenderness - Extremities Exam Extremities exam: Present: normal inspection. Absent: joint swelling, pedal edema, tenderness - Neurological Exam Neurological exam: Present: oriented X3 Additional comments: able to follow commands, squeeze hands, answers questions with thumbs up and thumbs down. - Expanded Neurological Exam Patient oriented to: Present: person, place, time - Psychiatric Psychiatric exam: Present: anxious - Skin Skin exam: Present: dry, warm. Absent: erythema Palliative Quality Palliative Quality: Screen for Code Status: Yes, Screen for Goals of Care: Yes, Screen for Pain: Yes, If Pain Regimen Started, Initiate Bowel Regimen: NA, Screen for Nausea/Vomitting: Yes Code Status: 04/02/16 14:26 DNR [Resuscitation Status: Active] [RES] Routine Comment: Resuscitation Status: DNR-Comfort Care <Travis Mcqueen Colton - Last Filed: 04/02/16 16:14> Date of Encounter: 04/02/16 Internal Medicine - H&P: HPI History of present illness: Mr. Philip is a 71 year old male Palliative Quality Code Status: 04/02/16 14:26 DNR [Resuscitation Status: Active] [RES] Routine Comment: Resuscitation Status: DNR-Comfort Care - Attending Attestation I examined this patient and my medical decision-making was reviewed with the BELLHOP CAPTAIN/PA/Advanced Practice Nurse/Resident Physician. I agree with the documented findings, disposition and treatment plan as described except to the extent set forth below.
[2016-04-02] MEDS: Scopolamine Patch 1.5 MG PATCH.TD72 TD SCH (18:32)
[2016-04-02] MEDS: Ondansetron 4 MG/2 ML VIAL IVP SCH (18:32)
[2016-04-02] MEDS: *HR* Morphine 2 MG/ML SYRINGE IVP PRN (23:45)
[2016-04-03] MEDS: *HR* LORazepam 2 MG/ML VIAL IVP PRN ×2 (00:08→05:23)
[2016-04-03] MEDS: Ondansetron 4 MG/2 ML VIAL IVP SCH ×5 (00:09→22:54)
[2016-04-03] MEDS: *HR* Morphine 2 MG/ML SYRINGE IVP PRN ×6 (02:38→22:54)
--- NOTE | 2016-04-03 09:48 | Palliative Progress Note ---
Date of Encounter: 04/03/16 Time of Encounter: 09:20 - Assessment and plan (1) Acute on chronic respiratory failure with hypoxemia Current Visit: No Status: Acute Assessment and plan: He should off BiPAP and tolerating it well on nasal cannula oxygen continue current therapy. Patient on hospice care at this time (2) Goals of care, counseling/discussion Current Visit: No Status: Acute Assessment and plan: DNR comfort care, patient is under hospice care at this time patient is getting intense of life care at this time and intense symptom management for dyspnea at this time. This cannot be provided a alf or at home per is at this time patient will remain general inpatient. (3) HCAP (healthcare-associated pneumonia) Current Visit: No Status: Acute (4) Dysphagia Current Visit: No Status: Chronic Assessment and plan: She has had dysphagia for a long time secondary to his Parkinson's disease patient does have a diet written for if he wishes to eat. Currently he is not conscious enough to do so. Qualifiers: Qualified Code(s): R13.10 - Dysphagia, unspecified - Time Spent With Patient Total time spent is greater than 50% in coordination of care (as documented) at patient's floor/unit and/or counseling patient: - Subjective Interval history: Resting comfortably at this time, on Cipro family is more shallow per family - Constitutional General appearance: Present: no acute distress - Head Head exam: Present: atraumatic, normal inspection - Eye Eye exam: Present: normal appearance - ENT ENT exam: Present: mucous membranes dry - Neck Neck exam: Present: normal inspection - Respiratory Respiratory exam: Present: decreased breath sounds, rhonchi - Cardiovascular Cardiovascular exam: Present: RRR - GI/Abdominal GI/Abdominal exam: Present: normal bowel sounds, soft. Absent: tenderness - Extremities Exam Extremities exam: Absent: normal inspection (It appears to be some modeling particularly on the left knee greater than right), pedal edema, tenderness - Neurological Exam Neurological exam: Present: altered - Psychiatric Psychiatric exam: Absent: agitated, anxious - Skin Skin exam: Present: dry, mottled, warm Palliative Quality Palliative Quality: Screen for Code Status: Yes, Screen for Goals of Care: Yes, Screen for Pain: Yes, If Pain Regimen Started, Initiate Bowel Regimen: NA, Screen for Nausea/Vomitting: Yes Code Status: 04/02/16 14:26 DNR [Resuscitation Status: Active] [RES] Routine Comment: Resuscitation Status: DNR-Comfort Care Consult Discharge Plan - Plan Referrals: Roxi Estrada DO [Primary Care Provider] -
--- NOTE | 2016-04-03 14:43 | Event Note ---
Date of Encounter: 04/03/16 Time of Encounter: 14:40 Hospice medical specialist certification of terminal illness: Hospice benefit. Start: 04/02/2016 Hospice benefit. In: +90 days Palliative performance scale: 20% History: With long-standing Parkinson's disease, and a heart decline recently now complicated by Carli and respiratory failure for which she has been BiPAP dependent. The patient wishes to stop all care at this time the exception of comfort care measures. Per labs he is got hypercapnic hypoxemic respiratory failure he is not expected that he will survive more than they used to weeks max. These findings support a life expectancy of 6 months or less. I attest that I have compose the above narrative based on my review of the patient's medical records, and or on my examination of the patient. Travis Mcqueen M.D. Associate medical device sales consultant. [facility]
[2016-04-03] MEDS: Atropine Sulfate 1% 40 DROP/2 ML BOTTLE SL PRN (22:56)
[2016-04-04] MEDS: *HR* Morphine 2 MG/ML SYRINGE IVP PRN ×2 (02:29→06:46)
[2016-04-04] MEDS: *HR* LORazepam 2 MG/ML VIAL IVP PRN ×2 (04:46→06:47)
[2016-04-04] MEDS: Ondansetron 4 MG/2 ML VIAL IVP SCH (04:49)
--- NOTE | 2016-04-04 07:58 | Palliative Progress Note ---
Date of Encounter: 04/04/16 Time of Encounter: 07:53 - Assessment and plan (1) Acute on chronic respiratory failure with hypoxemia Current Visit: No Status: Acute Assessment and plan: He should off BiPAP and tolerating it well on nasal cannula oxygen continue current therapy. Patient on hospice care at this time (2) Goals of care, counseling/discussion Current Visit: No Status: Acute Assessment and plan: DNR comfort care, patient is under hospice care at this time patient is getting intense of life care at this time and intense symptom management for dyspnea at this time. This cannot be provided a usp or at home per is at this time patient will remain general inpatient. Patient is now on a continuous IV morphine drip and will therefore stay on general inpatient hospice for the time being. (3) HCAP (healthcare-associated pneumonia) Current Visit: No Status: Acute Assessment and plan: Further therapy for this per patient and family request patient on hospice care , comfort care only. (4) Dysphagia Current Visit: No Status: Chronic Assessment and plan: She has had dysphagia for a long time secondary to his Parkinson's disease patient does have a diet written for if he wishes to eat. She has taken a few nipples and some sips. - Time Spent With Patient Total time spent is greater than 50% in coordination of care (as documented) at patient's floor/unit and/or counseling patient: - Subjective Interval history: Resting comfortably at this time, used 6 doses of 3 mg morphine yesterday, have a period of lucency yesterday afternoon during which she was coming along with the music and interacting with his blanker operator. However according to the family the mottling on his knees is worse today. - Constitutional General appearance: Present: no acute distress - Head Head exam: Present: atraumatic, normal inspection - ENT ENT exam: Present: mucous membranes dry - Respiratory Respiratory exam: Present: decreased breath sounds - Cardiovascular Cardiovascular exam: Present: RRR - GI/Abdominal GI/Abdominal exam: Present: normal bowel sounds, soft. Absent: tenderness - Extremities Exam Extremities exam: Absent: normal inspection (Mottling noted around both knees.) , pedal edema, tenderness - Neurological Exam Neurological exam: Present: altered - Skin Skin exam: Present: dry, mottled (Around both knees), warm Palliative Quality Palliative Quality: Screen for Code Status: Yes, Screen for Goals of Care: Yes, Screen for Pain: Yes, If Pain Regimen Started, Initiate Bowel Regimen: NA, Screen for Nausea/Vomitting: Yes Code Status: 04/02/16 14:26 DNR [Resuscitation Status: Active] [RES] Routine Comment: Resuscitation Status: DNR-Comfort Care Consult Discharge Plan - Plan Referrals: Roxi Estrada DO [Primary Care Provider] - (Pt is pallative..)
[2016-04-04] MEDS ORDERED: *HR* Morphine 30 MG/ 30 ML PCA IVC PRN (08:33)
[2016-04-04] MEDS ORDERED: Ondansetron 4 MG/2 ML VIAL IVP PRN (08:38)
[2016-04-04] MEDS ORDERED: 0.9 % Sodium Chloride 500 ML ONE (10:41)
[2016-04-05] MEDS: *HR* Morphine 2 MG/ML SYRINGE IVP PRN ×2 (06:43→08:22)
[2016-04-05] MEDS: Atropine Sulfate 1% 40 DROP/2 ML BOTTLE SL PRN (06:52)
[2016-04-05] MEDS: *HR* LORazepam 2 MG/ML VIAL IVP PRN ×2 (06:54→21:22)
[2016-04-05] MEDS ORDERED: *HR* Morphine 2 MG/ML SYRINGE IVP PRN (09:05)
[2016-04-05] MEDS: *HR* Morphine 30 MG/ 30 ML PCA IVC PRN ×2 (09:52→13:34)
--- NOTE | 2016-04-05 10:04 | Palliative - Consult Note ---
Date of Encounter: 04/05/16 Time of Encounter: 08:50 - Assessment and Plan (1) Dyspnea Current Visit: Yes Status: Acute Assessment and plan: With increased RR and occasional moaning, he appears to be in some distress this am. Discussed with . Will increase Morphine to 2mg/hr and increase bolus doses to 2mg as well if needed. Monitor and adjust as needed. Qualifiers: Dyspnea type: unspecified Qualified Code(s): R06.00 - Dyspnea, unspecified (2) Anxiety Current Visit: Yes Status: Acute Assessment and plan: Continue PRN Ativan. Utilized x1 last 24 hours. (3) Airway clearance impairment Current Visit: Yes Status: Acute Assessment and plan: Continue scopolamine and atropine drops PRN. Monitor (4) Goals of care, counseling/discussion Current Visit: No Status: Acute Assessment and plan: at bedside pleased with care and continues to desire him to be comfortable until he passes away. Answered questions and provided emotional support. Palliative-CN HPI - Data of Consult Consult date: 04/05/16 Requesting Physician: Be Castro MD Primary Care Provider: Roxi Estrada DO - Consult Narrative History of present illness: Mr. Philip is a 71 year old male admitted for general in hospice care after a prolonged illness. Patient has history of leg fracture and Parkinsons disease which has led to care in a nursing facility. He was originally admitted to hospital and treated for pneumonia and resp failure. Patient condition deteriorated, however, he did not desire intubation. Bipap was initiated while pt received ongoing antibiotic therapy, but he did not improve. Decision was made by pt/family to discontinue the ventilatory support and focus on comfort measures. He was discharged from hospital and admitted to in hospice care for intense symptom control. At my visit, is at bedside. He appears to be in some resp distress and RR in the 40's and shallow, tachycardic as well. He is moaning occasionally during my assessment. states that he has been much more comfortable after initiation of Morphine drip, however, she did notice an increase in his RR this am. CC: Be Castro MD Past Med Surg Social Fam HX - Past Medical History Medical history: dementia, GERD, hyperlipidemia, hypertension Psychiatric history: anxiety, depression - Past Surgical History Surgical History: no surgical history - Social History Smoking Status: Never smoker Smokeless Tobacco Status: No Alcohol use: none Drug use: none - Family History Mother Living Status: Hx Family Neurologic Disorders: Yes (Parkinsons) Father Living Status: Still Living Hx Family Cardiac Disorders: Yes (Mi,Stroke) Hx Family Neurologic Disorders: Yes (Dementia) Hx Family Autoimmune Disorders: Yes Medications and Allergies Acetaminophen [8 Hour] 650 mg PO Q6H PRN 07/08/15 [History] Benztropine [Cogentin] 1 mg PO BID 07/08/15 [History] Carbidopa/Levodopa 25/100 [Sinemet 25/100] 1 each PO Q2H MDD 7 a.m. thru 9 p.m. 07/08/15 [History] Cholecalciferol (Vitamin D3) [Vitamin D] 400 unit PO DAILY 07/08/15 [History] Cyclosporine [Restasis] 1 each BOTH EYES BID 07/08/15 [History] Doxycycline Hyclate [Vibramycin] 100 mg PO BID 07/08/15 [History] Fluticasone Propionate Nasal [Flonase] 50 mcg NS DAILY 07/08/15 [History] Gabapentin [Neurontin] 900 mg PO TID 07/08/15 [History] Loperamide [Imodium] 2 mg PO Q8HR PRN 07/08/15 [History] Losartan/HCTZ [Hyzaar 50-12.5 Tablet] 0.5 each PO DAILY 07/08/15 [History] Melatonin 10 mg PO HS PRN 07/08/15 [History] Meloxicam [Mobic] 7.5 mg PO HS 07/08/15 [History] Memantine [Namenda] 10 mg PO BID 07/08/15 [History] Mirtazapine [Remeron] 15 mg PO HS 07/08/15 [History] Multivitamin [Multivitamins] 1 cap PO DAILY 07/08/15 [History] [place]ore-3/Dha/Epa/Fish Oil [Fish Oil [place]ore-3 EC 1,200 mg] 1 each PO BID 07/08/15 [ History] Oxycodone HCl/Acetaminophen [Percocet 5-325 mg Tablet] 1 each PO Q4HR PRN [History] Pantoprazole Sodium [Protonix] 40 mg PO BID 07/08/15 [History] Simvastatin [Zocor] 20 mg PO HS 07/08/15 [History] Acetaminophen [Tylenol Arthritis] 650 mg PO TID 03/30/16 [History] Carbidopa/Levodopa 25/100 [Sinemet 25/100] 1 each PO DAILY PRN MDD Between 1-2 a.m. only 03/30/16 [History] CloNIDine HCl 0.1 mg PO DAILY 03/30/16 [History] Cyclobenzaprine HCl 5 mg PO HS 03/30/16 [History] Donepezil HCl 23 mg PO DAILY 03/30/16 [History] Guaifenesin [Mucinex] 1,200 mg PO BID PRN 03/30/16 [History] Metoprolol XL (24 HR) Succ [Toprol Xl] 50 mg PO DAILY 03/30/16 [History] Ropinirole HCl [Requip] 3 mg PO TID 03/30/16 [History] CloNIDine Patch [Catapres-Tts] 0.1 mg TD QWEEK patch.tdwk 04/02/16 [Rx] Glycopyrrolate [Robinul] 0.2 mg IVP Q4H PRN #0 vial 04/02/16 [Rx] LORazepam Oral Conc [Ativan Oral Conc] 1 mg GTUBE BID mls 04/02/16 [Rx] Morphine [Morphine Sulfate] 4 mg IVP Q2H PRN #0 syringe 04/02/16 [Rx] Scopolamine Patch [Transderm-Scop] 1.5 mg TD Q72H patch.td72 04/02/16 [Rx] Allergies Penicillins Allergy (Verified 03/30/16 07:43) See Comments Unknown Sulfa (Sulfonamide Antibiotics) Allergy (Verified 03/30/16 07:43) See Comments unknown Zolpidem [From Ambien] Allergy (Verified 03/30/16 07:43) Unresponsive ROS unobtainable: due to mental status Palliative Care-Exam - Constitutional Vitals: Temp Pulse Resp BP Pulse Ox 99.3 F 114 47 172/77 89 L 04/05/16 01:15 04/05/16 01:15 04/05/16 01:15 04/05/16 01:15 04/05/16 01:15 General appearance: Present: mild distress - Head Head Exam: Present: normal inspection, normocephalic - Eye Eye exam: Present: normal appearance, PERRL - ENT ENT exam: Present: mucous membranes moist - Respiratory Additional comments: Few scattered rhonchi throughout anterior chest - Cardiovascular Cardiovascular exam: Present: irregular rhythm, tachycardia - GI/Abdominal Exam GI/Abdominal exam: Present: diminished bowel sounds, soft - Catheter Type: Urethral ([place]) - Extremities Exam Additional comments: 1+ edema to bilateral lower extremities - Neurological Exam Neurological exam: Present: altered Additional comments: Patient minimally responsive. Moans occasionally with assessment - Skin Skin exam: Present: dry, pallor, warm Consult Discharge Plan - Plan Referrals: Roxi Estrada, [Primary Care Provider] - (Pt is pallative..) Palliative Quality Palliative Quality: Screen for Code Status: Yes, Screen for Goals of Care: Yes, Screen for Pain: Yes, If Pain Regimen Started, Initiate Bowel Regimen: NA, Screen for Nausea/Vomitting: Yes Code Status: 04/02/16 14:26 DNR [Resuscitation Status: Active] [RES] Routine Comment: Resuscitation Status: DNR-Comfort Care
[2016-04-05] MEDS ORDERED: 0.9 % Sodium Chloride 500 ML ONE (11:06)
[2016-04-05] MEDS: Scopolamine Patch 1.5 MG PATCH.TD72 TD SCH (16:28)
[2016-04-06] MEDS: *HR* Morphine 30 MG/ 30 ML PCA IVC PRN ×2 (04:36→22:03)
[2016-04-06 08:31] VITALS: BP 181/81
[2016-04-06] MEDS: *HR* LORazepam 2 MG/ML VIAL IVP PRN ×2 (08:31→16:30)
[2016-04-06] MEDS ORDERED: 0.9 % Sodium Chloride 500 ML ONE (12:35)
--- NOTE | 2016-04-06 13:32 | Palliative Progress Note ---
Date of Encounter: 04/06/16 Time of Encounter: 09:15 - Assessment and plan (1) Acute on chronic respiratory failure with hypoxemia Current Visit: No Status: Acute Assessment and plan: Tolerating oxygenation well. Continue current regimen (2) Goals of care, counseling/discussion Current Visit: No Status: Acute Assessment and plan: DNR comfort care, patient is under hospice care at this time patient is getting intense of life care at this time and intense symptom management for dyspnea at this time. This cannot be provided a snf or at home per is at this time patient will remain general inpatient. Patient is now on a continuous IV morphine drip and will therefore stay on general inpatient hospice for the time being. She continues to show a slow but definite decline mottling is increasing patient will stay on the GIP service until he passes. (3) HCAP (healthcare-associated pneumonia) Current Visit: No Status: Acute Assessment and plan: no Further therapy for this per patient and family request patient on hospice care, comfort care only. (4) Dysphagia Current Visit: No Status: Chronic Assessment and plan: he has had dysphagia for a long time secondary to his Parkinson's disease is the just mouth care and sucking on that for small amounts of water. He is not currently eating. - Time Spent With Patient Total time spent is greater than 50% in coordination of care (as documented) at patient's floor/unit and/or counseling patient: - Subjective Interval history: Resting comfortably at this time, per family is slowly declining. Mottling is noted more.. - Constitutional General appearance: Present: no acute distress - Head Head exam: Present: atraumatic, normal inspection - Eye Eye exam: Present: normal appearance - ENT ENT exam: Present: mucous membranes moist - Respiratory Respiratory exam: Present: decreased breath sounds - Cardiovascular Cardiovascular exam: Present: tachycardia - GI/Abdominal GI/Abdominal exam: Present: hypoactive bowel sounds, soft. Absent: tenderness - Extremities Exam Extremities exam: Absent: normal inspection (Mottling is noted), pedal edema, tenderness - Neurological Exam Neurological exam: Present: altered. Absent: alert - Psychiatric Psychiatric exam: Absent: agitated, anxious - Skin Skin exam: Present: dry, mottled, warm (Legs are somewhat cool but not cold. There is mottling noted especially on the left leg greater than the right) Palliative Quality Palliative Quality: Screen for Code Status: Yes, Screen for Goals of Care: Yes, Screen for Pain: Yes, If Pain Regimen Started, Initiate Bowel Regimen: NA, Screen for Nausea/Vomitting: Yes Code Status: 04/02/16 14:26 DNR [Resuscitation Status: Active] [RES] Routine Comment: Resuscitation Status: DNR-Comfort Care Consult Discharge Plan - Plan Referrals: Roxi Estrada DO [Primary Care Provider] - (Pt is pallative..)
[2016-04-07] MEDS: Atropine Sulfate 1% 40 DROP/2 ML BOTTLE SL PRN (04:44)
[2016-04-07] MEDS: *HR* LORazepam 2 MG/ML VIAL IVP PRN (04:49)
--- NOTE | 2016-04-07 05:51 | Event Note ---
Date of Encounter: 04/07/16 Time of Encounter: 05:19 I was informed by Humaira RUVALCABA that the patient has and two nurses verified /pronounced the patient.
--- NOTE | 2016-04-10 15:34 | Death Note ---
Discharge Sum: Summary - Date and Time Date of admission: 04/02/16 15:33 Date of : 04/07/16 Time of : 05:05 - Summary Details: The patient was brought under the general inpatient hospice service for management of dyspnea at end of life. Patient on the general inpatient service for several days medications were given to deviate dyspnea and pain. Patient passed comfortably with family present at 0505 hrs. on the . Agents cause of was respiratory failure secondary to pneumonia the pneumonia was probably secondary to his Parkinson's disease in that he was having trouble with aspirations. 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 Patient was not a smoker. - Additional Data Confirmation of as documented by pronouncing clinician: no pulse, no respirations, no heart sounds Family: at bedside Attending/PCP notified?: Yes Attending physician: Be Castro MD Was code activated?: No Autopsy requested?: No grey goods examiner notified?: No Organ bank notified?: Yes Advance directives: Yes Hospice patient?: Yes Discharge Sum: Diag - PCOD Probable Cause of : Respiratory arrest Discharge Sum: Prov - Provider Primary care physician: Roxi Estrada DO Consults: 04/02/16 14:16 Consult to Palliative Care [CONS] Routine Comment: Consulting Provider: Palliative Care Mary
== END 2016-04-07 10:10 | disposition expired | DRG 189 ==
LOC: 2ANU 15:33 → SUATTDRO 15:33
PROVIDERS: ADMIT Family Medicine Hospice and Palliative Medicine; ATTEND Internal Medicine